=== PATIENT | male | born 1945 | race Caucasian/White ===

== ENCOUNTER 2018-08-15 12:33 | Emergency (ER) | payer OTHER, BC ==
--- OUTSIDE RECORDS SUMMARY | 2018-08-15 12:35 | XMS REPORT | Clinical Summary ---
:1945 Author Organization [facility] Address [address] [place] [address] Care Team Providers Name Role Phone Rk Evans DO Primary Care Provider Unavailable Allergies Active Allergy Reactions Severity Noted Date Comments Morphine 01/18/2016 Medications Medication Sig Dispensed Refills Start End Status Date Date ipratropium-albuterol USE 1 AMPULE IN 810 mL 1 05/04/20 Active (DUO-NEB) 0.5-2.5 NEBULIZER EVERY 8 18 mg/mL HOURS NEEDED nebulizerIndications: Chronic obstructive pulmonary disease, unspecified COPD type (HCC) testosterone cypionate INJECT 1 ML 10 mL 0 12/07/19 Discontinued (DEPOTESTOTERONE INSTRAMUSCULAR 16 018 CYPIONATE) 200 mg/mL EVERY 2 WEEKS injection ipratropium-albuterol USE 1 AMPULE IN 270 mL 1 09/25/19 Discontinued (DUO-NEB) 0.5-2.5 NEBULIZER EVERY 8 17 018 mg/mL HOURS NEEDED nebulizerIndications: Chronic obstructive pulmonary disease, unspecified COPD type (HCC) TIOTROPIUM BROMIDE Inhale. 0 Discontinued (SPIRIVA RESPIMAT 018 INHL) methylPREDNISolone follow package 21 tablet 0 08/08/19 (MEDROL, KLAUS,) 4 mg directions 18 018 tablet PROAIR HFA 90 USE 2 PUFFS BY 18 g 3 08/08/19 Discontinued mcg/actuation MOUTH EVERY 6 18 018 inhalerIndications: HOURS NEEDED Acute bronchitis, unspecified organism albuterol (VENTOLIN Inhale 2 puffs 18 g 2 08/11/19 HFA) 90 mcg/actuation every 6 (six) 18 018 inhaler hours as needed for wheezing for up to 30 days. albuterol (PROAIR HFA) Inhale 1 puff 54 g 3 09/22/ Discontinued 90 mcg/actuation every 6 (six) 18 018 inhalerIndications: hours as needed Acute bronchitis, for wheezing for unspecified organism up to 90 days. fluticasone-vilanterol Inhale 1 puff. 0 06/16/20 Discontinued (BREO ELLIPTA) 200-25 17 018 mcg/dose blister with device powder for inhalation traMADol (ULTRAM) 50 Take 1 tablet (50 60 tablet 0 12/16/19 mg tablet mg total) by 18 018 mouth every 8 (eight) hours as needed for moderate pain for up to 30 days. tiotropium bromide Inhale 2 Act 4 g 2 12/16/19 Discontinued (SPIRIVA RESPIMAT) 2.5 daily for 90 18 018 mcg/actuation mist days. albuterol (PROAIR HFA) Inhale 1 puff 54 g 3 12/16/19 90 mcg/actuation every 6 (six) 18 018 inhaler hours as needed for wheezing or shortness of breath for up to 90 days. ipratropium-albuterol USE 1 AMPULE IN 270 mL 1 12/16/19 Discontinued (DUO-NEB) 0.5-2.5 NEBULIZER EVERY 8 18 018 mg/mL HOURS NEEDED nebulizerIndications: Chronic obstructive pulmonary disease, unspecified COPD type (HCC) fluticasone-vilanterol Inhale 1 90 each 2 12/16/19 (BREO ELLIPTA) 200-25 inhalations once 18 018 mcg/dose blister with daily for 90 device powder for days. inhalation umeclidinium (INCRUSE Inhale 62.5 mcg 1 each 1 12/16/19 ELLIPTA) 62.5 daily for 30 18 018 mcg/actuation blister days. with device ipratropium-albuterol USE 1 AMPULE IN 810 mL 1 01/24/20 Discontinued (DUO-NEB) 0.5-2.5 NEBULIZER EVERY 8 18 018 mg/mL HOURS NEEDED nebulizerIndications: Chronic obstructive pulmonary disease, unspecified COPD type (HCC) Active Problems Problem Noted Date COPD with exacerbation 08/08/2017 Chronic obstructive pulmonary disease 05/27/2016 Secondary hypertension 05/27/2016 COPD (chronic obstructive pulmonary disease) Asthma Encounters Date Type Specialty Care Team Description 05/04/2018 Refill Pulmonology January Adair MA Chronic obstructive pulmonary disease, unspecified COPD type (HCC) 01/23/2018 Orders Only Pulmonology Charity Lam MA Chronic obstructive pulmonary disease, unspecified COPD type 01/05/2018 Hospital Encounter Radiology Rk Evans, Primary 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 of knees, bilateral 01/05/2018 Hospital Encounter Radiology Rk Evans, Primary 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 of knees, bilateral 01/05/2018 Transcribe Orders Access Rk Evans, Primary 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 of knees, bilateral (Primary Dx) 12/15/2017 Office Visit Pulmonology Kris Brown, Chronic obstructive pulmonary disease, unspecified COPD type (Primary Dx); Osteoarthritis of left knee, unspecified osteoarthritis type 12/15/2017 Orders Only Pulmonology Dina Lam MA 09/22/2017 Orders Only Pulmonology Stefani Weber MA Acute bronchitis, unspecified organism 09/08/2017 Clinical Support Pulmonology Abhijit Meeks Chronic obstructive pulmonary disease, unspecified COPD type after 08/14/2017 Immunizations Name Dates Previously Given Next Due FLUZONE HIGH-DOSE PF 05/27/2016 Influenza Trivalent 05/01/2015 Pneumococcal Conjugate 13-Valent 05/01/2015 Pneumococcal Polysaccharide 08/15/2014 Family History Medical History Relation Name Comments Cancer Father Hypertension Mother Relation Name Status Comments Father Mother Social History Tobacco Use Types Packs/Day Years Used Date Former Smoker Cigarettes Quit: 05/27/1996 Smokeless Tobacco: Former User Alcohol Use Drinks/Week oz/Week Comments Yes Sex Assigned at Date Recorded Not on file Job Start Date Occupation Industry Not on file Not on file Not on file Travel History Travel Start Travel End No recent travel history available. Last Filed Vital Signs Vital Sign Reading Time Taken Blood Pressure 113/60 12/15/2017 12:29 PM CDT Pulse 73 12/15/2017 12:29 PM CDT Temperature 37.1 C (98.7 F) 12/15/2017 12:29 PM CDT Respiratory Rate 14 12/15/2017 12:29 PM CDT Oxygen Saturation 97% 12/15/2017 12:29 PM CDT Inhaled Oxygen Concentration - - Weight 86.9 kg (191 lb 9.6 oz) 12/15/2017 12:29 PM CDT Height 177.8 cm (5' 10") 12/15/2017 12:29 PM CDT Body Mass Index 27.49 12/15/2017 12:29 PM CDT Plan of Treatment Health Maintenance Due Date Last Done Comments COLON CANCER SCREENING 1994 SHINGLES VACCINES (1 of 2) 1994 INFLUENZA VACCINE 02/11/2018 06/16/2017, 05/27/2016, 05/01/2015 PNEUMOCOCCAL POLYSACCHARIDE VACCINE Completed 08/15/2014, 07/14/2014 AGE 65 AND OVER PNEUMOCOCCAL-13 Completed 06/16/2017, 05/01/2015 Procedures Procedure Name Priority Date/Time Associated Diagnosis Comments XR KNEE AP Routine 01/05/2018 10:35 Primary osteoarthritis Results for this STANDING BILATERAL AM CDT of knees, bilateral procedure are in the results section. XR KNEE 3 VW Routine 01/05/2018 10:35 Primary osteoarthritis Results for this BILATERAL AM CDT of knees, bilateral procedure are in the results section. after 08/14/2017 Results XR Knee Ap Standing Bilateral (01/05/2018 10:35 AM CDT) Narrative Performed At EXAMINATION:XR KNEE AP STANDING BILATERAL [facility] CLINICAL HISTORY:M17.0 Bilateral primary osteoarthritis of knee, M17.0 COMPARISON:None. TECHNIQUE: Standing AP radiographs of both knees are obtained. IMPRESSION: There is advanced arthritis in the right knee, an early medial compartment osteoarthritis in the left knee. Patient is status post right knee ACL repair. [facility]-[id number] Procedure Note Hm Interface, Radiology Results Incoming - 01/05/2018 10:47 AM CDT EXAMINATION: XR KNEE AP STANDING BILATERAL CLINICAL HISTORY: M17.0 Bilateral primary osteoarthritis of knee, M17.0 COMPARISON: None. TECHNIQUE: Standing AP radiographs of both knees are obtained. IMPRESSION: There is advanced arthritis in the right knee, an early medial compartment osteoarthritis in the left knee. Patient is status post right knee ACL repair. [facility]-[id number] Performing Organization Address City/State/Zipcode Phone Number [facility] [address] [place] [address] XR Knee 3 Vw Bilateral (01/05/2018 10:35 AM CDT) Narrative Performed At EXAMINATION:XR KNEE 3 VW BILATERAL [facility] CLINICAL HISTORY:M17.0 Bilateral primary osteoarthritis of knee, M17.5 COMPARISON:None. TECHNIQUE: AP, lateral, and oblique radiographs of both knees are obtained. IMPRESSION: 1.There is advanced osteoarthritis in the right knee. There are surgical changes of ACL repair. 2.There is early osteoarthritis in the left medial tibial femoral compartment. 3.There is no fracture, subluxation, joint effusion, or aggressive bone lesion. [id number] Procedure Note Hm Interface, Radiology Results Incoming - 01/05/2018 10:47 AM CDT EXAMINATION: XR KNEE 3 VW BILATERAL CLINICAL HISTORY: M17.0 Bilateral primary osteoarthritis of knee, M17.5 COMPARISON: None. TECHNIQUE: AP, lateral, and oblique radiographs of both knees are obtained. IMPRESSION: 1. There is advanced osteoarthritis in the right knee. There are surgical changes of ACL repair. 2. There is early osteoarthritis in the left medial tibial femoral compartment. 3. There is no fracture, subluxation, joint effusion, or aggressive bone lesion. [id number] Performing Organization Address City/State/Zipcode Phone Number [facility] [address] [place] [address] after 08/14/2017 Insurance Payer Benefit Plan / Group Subscriber ID Type Phone Address [employer]/HMO BLUE ESSENTIALS xxxxxxxxxxxx HMO AETNA AETNA HMO,POS,EPO, MC/EC xxxxxxxx HMO [facility] COUNTS INCLUDE [address] BEDS AT THE [facility] (Home) [address], [place] (Work) [phone] Advance Directives Patient has advance care planning documents on file. For more information, please contact:Carlos Quintero[address] [place] [phone]
[2018-08-15] MEDS ORDERED: LIDOCAINE VISCOUS 2% SOLN 15 ML UDC ONE (13:48)
[2018-08-15] MEDS ORDERED: MAGNE/ALUM HYDROXD 30 ML UCUP ONE (13:48)
--- NOTE | 2018-08-15 14:11 | ER ---
Nurse's Notes [facility] Name: Kwadwo Bird Age: 72 yrs Sex: Male : 1945 Arrival Date: 08/15/2018 Time: 12:39 Bed 23 Private MD: Diagnosis: Pain in throat Presentation: 08/15 12:48 Presenting complaint: Patient states: Sore throat for one night, denies cough, fever. la1 States it reminds him of when he used to get strep when he was young. Transition of care: patient was not received from another setting of care. Onset of symptoms was August 15, 2018. Risk Assessment: Do you want to hurt yourself or someone else? Patient reports no desire to harm self or others. Initial Sepsis Screen: Does the patient meet any 2 criteria? No. Patient's initial sepsis screen is negative. Does the patient have a suspected source of infection? No. Patient's initial sepsis screen is negative. Care prior to arrival: None. 12:48 Method Of Arrival: Ambulatory la1 12:48 Acuity: DEQUAN 3 la1 Historical: - Allergies: 12:49 No Known Allergies; la1 - PMHx: 12:49 Asthma; la1 - PSHx: 12:49 Tonsillectomy; Knee surgery; la1 - Immunization history:: Adult Immunizations up to date. - Social history:: Smoking status: Patient/guardian denies using tobacco, the patient reports quitting approximately 10 years ago. - Ebola Screening: : No symptoms or risks identified at this time. Screenin:30 Abuse screen: Denies threats or abuse. Nutritional screening: No deficits noted. tl3 Tuberculosis screening: No symptoms or risk factors identified. Fall Risk None identified. Assessment: 13:30 Reassessment: throat started hurting last night, no fever. General: Appears in no tl3 apparent distress. comfortable, slender, well groomed, well developed, well nourished, Behavior is calm, cooperative, appropriate for age. Pain: Complains of pain in sore throat. Neuro: Level of Consciousness is awake, alert, obeys commands, Oriented to person, place, time, situation, Appropriate for age. Cardiovascular: Patient's skin is warm and dry. Respiratory: Airway is patent Respiratory effort is even, unlabored, Respiratory pattern is regular, symmetrical, Breath sounds are clear bilaterally. GI: No signs and/or symptoms were reported involving the gastrointestinal system. : No signs and/or symptoms were reported regarding the genitourinary system. EENT: Reports pain when swallowing. Derm: No signs and/or symptoms reported regarding the dermatologic system. Musculoskeletal: No signs and/or symptoms reported regarding the musculoskeletal system. 14:42 Reassessment: pt left before signing discharge papers. tl3 Vital Signs: 12:49 BP 125 / 72; Pulse 91; Resp 18; Temp 97.6; Pulse Ox 98% on R/A; Weight 88.45 kg; Height la1 5 ft. 1 in. (154.94 cm); 13:30 BP 151 / 87; Pulse 67; Resp 18; Pulse Ox 100% on R/A; tl3 14:00 BP 142 / 87; Pulse 66; Resp 18; Pulse Ox 95% on R/A; tl3 12:49 Body Mass Index 36.84 (88.45 kg, 154.94 cm) la1 ED Course: 12:39 Patient arrived in ED. mr 12:49 Triage completed. la1 12:50 Arm band placed on left wrist. la1 12:51 [facility] Velasquez [facility]-C [facility]. kb 12:51 Edson Rinaldi MD is Attending Physician. kb 13:30 Patient has correct armband on for positive identification. Bed in low position. tl3 13:30 No provider procedures requiring assistance completed. Patient did not have IV access tl3 during this emergency room visit. 13:36 Kay England, RN is Primary Nurse. tl3 Administered Medications: 13:41 Drug: GI Cocktail without - (Maalox Suspension 30 ml, Lidocaine Liquid 2 % 15 tl3 ml) Route: PO; 14:41 Follow up: Response: No adverse reaction tl3 Outcome: 14:10 Discharge ordered by . kb 14:42 Eloped from patient exam room, left before signing discharge paperwork tl3 14:44 Patient left the ED. tl3 Signatures: Radha Velasquez FNP-C FNP-Meghna Latasha ParekhStan, RN RN la1 Kay England, JOHN RN tl3
--- NOTE | 2018-08-15 14:11 | EDPHYS ---
Physician Documentation [facility] Name: Kwadwo Bird Age: 72 yrs Sex: Male : 1945 Arrival Date: 08/15/2018 Time: 12:39 Bed 23 Private MD: ED Physician Edson Rinaldi HPI: 08/15 14:33 This 72 yrs old Male presents to ER via Ambulatory with complaints of Sore kb Throat. 14:33 The patient presents with sore throat. The patient describes throat pain as constant. kb Onset: The symptoms/episode began/occurred yesterday. Severity of symptoms: At their worst the symptoms were moderate, in the emergency department the symptoms are unchanged. Modifying factors: The symptoms are alleviated by nothing, the symptoms are aggravated by swallowing, Patient's oral intake status: good Denies contact with similarly ill indivduals. Associated signs and symptoms: Pertinent positives: Sore throat Pertinent negatives chest pain, chills, cough, diarrhea, dysphagia, earache, fever, flu-like symptoms, headache, nausea, rhinorrhea, shortness of breath, vomiting. The patient has not experienced similar symptoms in the past. The patient has not recently seen a physician. Historical: - Allergies: 12:49 No Known Allergies; la1 - PMHx: 12:49 Asthma; la1 - PSHx: 12:49 Tonsillectomy; Knee surgery; la1 - Immunization history:: Adult Immunizations up to date. - Social history:: Smoking status: Patient/guardian denies using tobacco, the patient reports quitting approximately 10 years ago. - Ebola Screening: : No symptoms or risks identified at this time. ROS: 14:32 Constitutional: Negative for fever, chills, and weight loss, Neck: Negative for injury, kb pain, and swelling, Cardiovascular: Negative for chest pain, palpitations, and edema, Respiratory: Negative for shortness of breath, cough, wheezing, and pleuritic chest pain, Abdomen/GI: Negative for abdominal pain, nausea, vomiting, diarrhea, and constipation, Back: Negative for injury and pain, MS/Extremity: Negative for injury and deformity, Skin: Negative for injury, rash, and discoloration, Neuro: Negative for headache, weakness, numbness, tingling, and seizure. 14:32 ENT: Positive for sore throat. Exam: 14:32 Constitutional: This is a well developed, well nourished patient who is awake, alert, kb and in no acute distress. Head/Face: Normocephalic, atraumatic. ENT: Nares patent. No nasal discharge, no septal abnormalities noted. Tympanic membranes are normal and external auditory canals are clear. Oropharynx with no redness, swelling, or masses, exudates, or evidence of obstruction, uvula midline. Mucous membranes moist. Neck: Trachea midline, no thyromegaly or masses palpated, and no cervical lymphadenopathy. Supple, full range of motion without nuchal rigidity, or vertebral point tenderness. No Meningismus. Chest/axilla: Normal chest wall appearance and motion. Nontender with no deformity. No lesions are appreciated. Cardiovascular: Regular rate and rhythm with a normal S1 and S2. No gallops, murmurs, or rubs. Normal PMI, no JVD. No pulse deficits. Respiratory: Lungs have equal breath sounds bilaterally, clear to auscultation and percussion. No rales, rhonchi or wheezes noted. No increased work of breathing, no retractions or nasal flaring. Abdomen/GI: Soft, non-tender, with normal bowel sounds. No distension or tympany. No guarding or rebound. No evidence of tenderness throughout. Skin: Warm, dry with normal turgor. Normal color with no rashes, no lesions, and no evidence of cellulitis. MS/ Extremity: Pulses equal, no cyanosis. Neurovascular intact. Full, normal range of motion. Neuro: Awake and alert, GCS 15, oriented to person, place, time, and situation. Cranial nerves II-XII grossly intact. Motor strength 5/5 in all extremities. Sensory grossly intact. Cerebellar exam normal. Normal gait. Vital Signs: 12:49 BP 125 / 72; Pulse 91; Resp 18; Temp 97.6; Pulse Ox 98% on R/A; Weight 88.45 kg; Height la1 5 ft. 1 in. (154.94 cm); 13:30 BP 151 / 87; Pulse 67; Resp 18; Pulse Ox 100% on R/A; tl3 14:00 BP 142 / 87; Pulse 66; Resp 18; Pulse Ox 95% on R/A; tl3 12:49 Body Mass Index 36.84 (88.45 kg, 154.94 cm) la1 MDM: 12:51 Patient medically screened. kb 14:07 Data reviewed: vital signs, nurses notes. Data interpreted: Pulse oximetry: on room air kb is 98 %. Interpretation: normal. Counseling: I had a detailed discussion with the patient and/or guardian regarding: the historical points, exam findings, and any diagnostic results supporting the discharge/admit diagnosis, lab results, the need for outpatient follow up, a family practitioner, to return to the emergency department if symptoms worsen or persist or if there are any questions or concerns that arise at home. 08/15 12:56 Order name: Strep; Complete Time: 14:01 kb 08/15 12:56 Order name: Flu; Complete Time: 14:04 kb 08/15 13:56 Order name: Throat Culture EDMS Administered Medications: 13:41 Drug: GI Cocktail without - (Maalox Suspension 30 ml, Lidocaine Liquid 2 % 15 tl3 ml) Route: PO; 14:41 Follow up: Response: No adverse reaction tl3 Disposition: 18:51 Co-signature as Attending Physician, Edson Rinaldi MD Available for consultation at ps1 all times . Disposition: 08/15/18 14:10 Discharged to Home. Impression: Pain in throat. - Condition is Stable. - Discharge Instructions: Sore Throat, Inrh-nr-Leef. - Medication Reconciliation Form, Thank You Letter, Antibiotic Education, Prescription Opioid Use form. - Follow up: Emergency Department; When: As needed; Reason: Worsening of condition. Follow up: Private Physician; When: 2 - 3 days; Reason: Recheck today's complaints, Continuance of care, Re-evaluation by your physician. Signatures: Dispatcher [employer] EDWV Radha Velasquez, DORI-C ANIMAL COP-Stan Chang RN RN la1 Edson Rinaldi MD MD ps1 Kay England RN RN tl3 Corrections: (The following items were deleted from the chart) 14:44 14:10 08/15/2018 14:10 Discharged to Home. Impression: Pain in throat. Condition is tl3 Stable. Forms are Medication Reconciliation Form, Thank You Letter, Antibiotic Education, Prescription Opioid Use. Follow up: Emergency Department; When: As needed; Reason: Worsening of condition. Follow up: Private Physician; When: 2 - 3 days; Reason: Recheck today's complaints, Continuance of care, Re-evaluation by your physician. kb
[2018-08-15 14:59] VITALS: TEMP 97.6
[2018-08-15 15:01] VITALS: BP 142/87; O2SAT 95
== END 2018-08-15 14:44 | disposition home or self-care (01) ==
LOC: ER 12:33
DX: J02.9 Acute pharyngitis, unspecified (principal)
CPT/HCPCS: 87070; 87081; 87804; 99283

== ENCOUNTER 2024-01-03 13:21 | Emergency (ER) | payer OTHER, BC ==
[2024-01-03] MEDS ORDERED: METOPROLOL TARTRATE 5 MG/5 ML INJ IV ONE (13:37)
[2024-01-03 13:52] LABS: Absolute Eosinophils 0.2 K/uL (0-0.5); Absolute Lymphocytes (CBC) 1.2 K/uL (0.7-4.9); Absolute Monocytes 0.9 K/uL (0.1-1.3); Basophils % 0.5 % (0-1.3); Eosinophils % 3.4 % (0-4.4); Hematocrit 31.6 % (39.6-49.0); Hemoglobin 10.2 g/dL (13.6-17.9); Lymphocytes % 16.5 % (15.3-44.8); MCH 28.2 pg (27.0-35.0); MCHC 32.1 g/dL (32.0-36.0); MCV 87.7 fL (80-100); MPV 7.8 fL (7.6-11.3); Monocytes % 12.4 % (3.3-12.3); Neutrophils % 67.2 % (41.7-73.7); Platelets 345 thou/uL (152-406); RBC Red Blood Cell Count 3.61 M/uL (4.33-5.43); Red Cell Distribution Width 14.6 % (12.1-15.2)
[2024-01-03] MEDS ORDERED: dilTIAZem HCL 25 MG/5 ML VIAL IV ONE (13:59)
[2024-01-03 14:11] LABS: Anion Gap 9.2 mEq/L (5.0-15.0); Potassium 4.2 mEq/L (3.5-5.1); Troponin High Sensitivity 16.5 pg/mL (<58.9)
[2024-01-03 14:16] LABS: ALT/SGPT 19 U/L (16-61); AST/SGOT 13 U/L (15-37); Albumin 3.9 g/dL (3.4-5.0); Albumin/Globulin Ratio 1.4 (1.1-1.8); Alkaline Phosphatase 64 U/L (45-117); Bilirubin Total 0.4 mg/dL (0.2-1.0); Globulin 2.8 g/dL (2.3-3.5); Protein, Total 6.7 g/dL (6.4-8.2); Thyroid Stimulating Hormone 0.962 uIU/mL (0.358-3.740)
[2024-01-03 15:31] LABS: Bilirubin Direct < 0.2 mg/dL (0-0.2); Bilirubin Indirect, Calculated 0.2 mg/dL (0.2-0.8)
--- NOTE | 2024-01-03 15:35 | RAD REPORT ---
[facility] CLINICAL HISTORY: CHEST PAIN COMPARISON: Chest Single View dated 06/28/2023; Chest Pa And Lat (2 Views) dated 06/11/2023 TECHNIQUE: Portable AP view of the chest. FINDINGS: The lungs are clear. No pneumothorax or effusion. The cardiomediastinal contours are unre markable. IMPRESSION: No acute cardiopulmonary process.
--- NOTE | 2024-01-03 17:00 | RAD REPORT ---
EXAM DESCRIPTION: CT - Chest For Pe Angio - 01/03/2024 4:14 pm CLINICAL HISTORY: CHEST PAIN COMPARISON: No comparisons TECHNIQUE: Thin axial CT images of the chest were obtained following intravenous administration of i odinated contrast. Multiplanar reconstructions, and maximum intensity projection reconstructions were generated and reviewed. Exam utilizes a protocol for optimal evaluation of pulmonary arterial tree. All CT scans are performed using dose optimization technique as appropriate and may include automated exposure control or mA/KV adjustment according to patient size. FINDINGS: Pulmonary arteries are normal. No emboli or other suspicious finding. Mild aneurysmal dila tion of the ascending thoracic aorta measuring 4.3 cm in caliber. No other acute or significant aorta findings. No mass or infiltrate in the lung parenchyma. Basal predominant centrilobular emphysematous changes a nd hyperlucency. 4 mm peripheral right lower lobe nodule, axial image 38, nonspecific but likely robinson gn. No pleural thickening or pleural effusion. No pneumothorax. No abnormal mediastinal or hilar masses or lymphadenopathy seen. No chest wall mass or abnormal axill iary lymphadenopathy. IMPRESSION: No evidence of acute central pulmonary emboli. Mild aneurysmal dilation of the ascending thoracic aorta, measuring 4.3 cm in caliber. Other incidental findings as above.
--- NOTE | 2024-01-03 17:21 | EDPHYS ---
Physician Documentation [facility] Name: Kwadwo Bird Age: 78 yrs Sex: Male : 1945 Arrival Date: 01/03/2024 Time: 13:21 Bed 14 Private MD: ED Physician Itz Stokes HPI: 01/02 14:57 This 78 yrs old Male presents to ER via Ambulatory with complaints of Chest Pain, A-fib.rt 14:57 Patient with history of atrial fibrillation presents to the ED with chest pain, rt shortness of breath. Patient noted that his heart rate was elevated, patient did took 200 mg of amiodarone which initially improved his heart rate from 160s to 80s, however, his heart rate did increase following that. Patient denies other acute complaints at this time, symptoms are moderate in severity, no other aggravating or alleviating factors.. Historical: - Allergies: 13:32 Morphine; hb - PMHx: 13:32 Asthma; Chronic obstructive lung disease; hb - PSHx: 13:32 hernia repair; watchman procedure; hb - Immunization history:: Adult Immunizations up to date. - Infectious Disease History:: Denies. - Social history:: Smoking status: Patient denies any tobacco usage or history of. - Family history:: not pertinent. ROS: 14:57 Constitutional: Negative for fever, chills, and weight loss, Abdomen/GI: Negative for rt abdominal pain, nausea, vomiting, diarrhea, and constipation, MS/Extremity: Negative for injury and deformity, Skin: Negative for injury, rash, and discoloration, Neuro: Negative for headache, weakness, numbness, tingling, and seizure, 14:57 Cardiovascular: Positive for chest pain, palpitations, 14:57 Respiratory: Positive for shortness of breath, Negative for cough, Exam: 14:57 Constitutional: This is a well developed, well nourished patient who is awake, alert, rt and in no acute distress. Head/Face: Normocephalic, atraumatic. Chest/axilla: Normal chest wall appearance and motion. Nontender with no deformity. No lesions are appreciated. Cardiovascular: Regular rate and rhythm with a normal S1 and S2. No gallops, murmurs, or rubs. Normal PMI, no JVD. No pulse deficits. Respiratory: Lungs have equal breath sounds bilaterally, clear to auscultation and percussion. No rales, rhonchi or wheezes noted. No increased work of breathing, no retractions or nasal flaring. Abdomen/GI: Soft, non-tender, with normal bowel sounds. No distension or tympany. No guarding or rebound. No evidence of tenderness throughout. Skin: Warm, dry with normal turgor. Normal color with no rashes, no lesions, and no evidence of cellulitis. MS/ Extremity: Pulses equal, no cyanosis. Neurovascular intact. Full, normal range of motion. Neuro: Awake and alert, GCS 15, oriented to person, place, time, and situation. Cranial nerves II-XII grossly intact. Motor strength 5/5 in all extremities. Sensory grossly intact. Cerebellar exam normal. Normal gait. 14:57 ECG was reviewed by the Attending Physician. Vital Signs: 13:25 BP 135 / 106; Pulse 99; Resp 24; Temp 97.8(TE); Pulse Ox 99% on R/A; Pain 7/10; hb 13:39 BP 121 / 74; Pulse 164; kc6 13:46 BP 118 / 78; Pulse 132; kc6 13:50 BP 92 / 57; Pulse 104; kc6 13:56 BP 115 / 78; Pulse 62; Resp 20 S; Pulse Ox 97% on R/A; kc6 14:00 BP 103 / 68; Pulse 97; Resp 19 S; Pulse Ox 96% on R/A; kc6 14:10 BP 115 / 68; Pulse 70; Resp 20 S; Pulse Ox 97% on R/A; Weight 83.91 kg (R); Height 5 kc6 ft. 9 in. (R); 14:53 BP 110 / 72; Pulse 122; Resp 18 S; Pulse Ox 100% on R/A; kc6 15:34 BP 104 / 72; Pulse 65; Resp 15 S; Pulse Ox 97% on R/A; kc6 16:38 Pulse 62; Resp 18 S; Pulse Ox 100% on R/A; kc6 17:30 BP 119 / 60; Pulse 68; Resp 18; Pulse Ox 98% ; nj1 14:10 Body Mass Index 27.32 (83.91 kg, 175.26 cm) kc6 13:25 Pain Scale: Adult hb MDM: 13:36 Patient medically screened. rt 17:21 Differential diagnosis: A-fib, dysrhythmia, pulmonary embolism. Data reviewed: vital rt signs, nurses notes, lab test result(s), EKG, radiologic studies. Consideration of Admission/Observation Escalation of care including admission/observation considered. Offered patient admission to the hospital, states that he feels significantly better, back to normal, wishes to go home. I did inform patient of findings of pulmonary nodule as well as mild thoracic aneurysm, instructed to follow-up as an outpatient. Strict return precautions were discussed. Patient verbalized understanding is comfortable with this plan.. I considered the following discharge prescriptions or medication management in the emergency department Medications were administered in the Emergency Department. See MAR. Independent interpretation of the following test(s) in the Emergency Department X-Ray: My interpretation is No pneumonia seen on interpretation of x-ray images. Care significantly affected by the following chronic conditions: CKD, A-fib. Counseling: I had a detailed discussion with the patient and/or guardian regarding the historical points, exam findings, and any diagnostic results supporting the discharge/admit diagnosis, lab results, radiology results, the need for outpatient follow up. Response to treatment: the patient's symptoms have resolved after treatment. 01/02 13:35 Order name: Basic Metabolic Panel; Complete Time: 14:58 [facility] 01/02 13:35 Order name: CBC with Diff; Complete Time: 14:58 6 01/02 13:35 Order name: Troponin HS; Complete Time: 14:58 [facility] 01/02 13:36 Order name: D-Dimer; Complete Time: 14:58 rt 01/02 13:36 Order name: LFT's; Complete Time: 15:32 rt 01/02 13:36 Order name: TSH; Complete Time: 15:32 rt 01/02 13:35 Order name: XRAY Chest (1 view); Complete Time: 15:41 6 01/02 15:49 Order name: CT Chest For PE Angio; Complete Time: 17:09 rt 01/02 13:35 Order name: EKG; Complete Time: 13:36 [facility] 01/02 13:35 Order name: Cardiac monitoring; Complete Time: 13:35 [facility] 01/02 13:35 Order name: EKG - Nurse/Tech; Complete Time: 13:35 [facility] 01/02 13:35 Order name: IV Saline Lock; Complete Time: 13:35 kc6 01/02 13:35 Order name: Labs collected and sent; Complete Time: 13:35 [facility] 01/02 13:35 Order name: O2 Per Protocol; Complete Time: 13:35 [facility] 01/02 13:35 Order name: O2 Sat Monitoring; Complete Time: 13:35 [facility] EC:57 Rate is 153 beats/min. Rhythm is irregularly irregular, A fib with No ectopy, Left rt bundle branch block. QRS interval is normal. No Q waves. Administered Medications: 13:39 Drug: Metoprolol IVP 5 mg IVP every 5 minutes; Hold for SBP < 100 or HR < 60. x3 Route: kc6 IVP; Site: right forearm; 13:46 Drug: Metoprolol IVP 5 mg IVP every 5 minutes; Hold for SBP < 100 or HR < 60. x3 Route: kc6 IVP; Site: right forearm; 13:51 Drug: Metoprolol IVP 5 mg IVP every 5 minutes; Hold for SBP < 100 or HR < 60. x3 Route: kc6 IVP; Site: right forearm; 14:21 Follow up: Response: No adverse reaction; Cardiac rhythm is unchanged 6 14:21 Follow up: Response: No adverse reaction; Cardiac rhythm is unchanged 6 14:21 Follow up: Response: No adverse reaction; Cardiac rhythm is unchanged [facility] 14:10 Drug: Diltiazem IVP 10 mg IVP once; Over 2 minutes Route: IVP; Site: right forearm; 6 14:21 Follow up: Response: No adverse reaction; Cardiac rhythm changed [facility] Disposition: 17:21 Critical Care:. rt Disposition Summary: 01/03/24 17:20 Discharge Ordered Notes: Location: Home rt Problem: new rt Symptoms: are resolved rt Condition: Stable rt Diagnosis - Atrial fibrillation with rapid ventricular rate rt Followup: rt - With: Private Physician - When: 2 - 3 days - Reason: Discharge Instructions: - Discharge Summary Sheet rt - Atrial Fibrillation rt Forms: - Medication Reconciliation Form rt - Antibiotic Education rt - Prescription Opioid Use rt - Patient Portal Instructions rt - Leadership Thank You Letter rt Critical care time excluding procedures: 17:21 Critical care time: Bedside Care: 35 minutes. Total time: 35 minutes rt Signatures: Dispatcher [employer] Kimberly Doss RN RN hb Campbell, Kaitlyn, RN RN kc6 Itz Stokes, MD rt
--- NOTE | 2024-01-03 17:21 | ER ---
Nurse's Notes [facility] Name: Kwadwo Bird Age: 78 yrs Sex: Male : 1945 Arrival Date: 01/03/2024 Time: 13:21 Bed 14 Private MD: Diagnosis: Atrial fibrillation with rapid ventricular rate Presentation: 01/02 13:25 Chief complaint: Chest pain and palpitations since this morning. Coronavirus screen: At this time, the client does not indicate any symptoms associated with coronavirus-19. Ebola Screen: No symptoms or risks identified at this time. Initial Sepsis Screen: Does the patient meet any 2 criteria? No. Patient's initial sepsis screen is negative. Does the patient have a suspected source of infection? No. Patient's initial sepsis screen is negative. Risk Assessment: Do you want to hurt yourself or someone else? Patient reports no desire to harm self or others. Onset of symptoms was January 03, 2024. 13:25 Method Of Arrival: Ambulatory 13:25 Acuity: DEQUAN 2 hb Historical: - Allergies: 13:32 Morphine; hb - PMHx: 13:32 Asthma; Chronic obstructive lung disease; hb - PSHx: 13:32 hernia repair; watchman procedure; hb - Immunization history:: Adult Immunizations up to date. - Infectious Disease History:: Denies. - Social history:: Smoking status: Patient denies any tobacco usage or history of. - Family history:: not pertinent. Screenin:33 [facility] ED Fall Risk Assessment (Adult) History of falling in the last 3 months, kc6 including since admission No falls in past 3 months (0 pts) Confusion or Disorientation No (0 pts) Intoxicated or Sedated No (0 pts) Impaired Gait No (0 pts) Mobility Assist Device Used No (0 pt) Altered Elimination No (0 pt) Score/Fall Risk Level 0 - 2 = Low Risk. Abuse screen: Denies threats or abuse. Denies injuries from another. Nutritional screening: No deficits noted. Tuberculosis screening: No symptoms or risk factors identified. Assessment: 13:25 General: Appears in no apparent distress. uncomfortable, well groomed, well developed, kc6 Behavior is calm, cooperative, appropriate for age. Pain: Complains of pain in mid-sternal area Pain does not radiate. Pain currently is 7 out of 10 on a pain scale. at worst was 10 out of 10 on a pain scale. Pain began 4 hours ago. Neuro: Level of Consciousness is awake, alert, obeys commands, Oriented to person, place, time, situation, Appropriate for age. Cardiovascular: Reports chest pain, Heart tones S1 S2 present Capillary refill < 3 seconds Rhythm is atrial fibrillation with rapid ventricular response. Respiratory: Airway is patent Trachea midline Respiratory effort is even, unlabored, Respiratory pattern is regular, symmetrical. GI: No signs and/or symptoms were reported involving the gastrointestinal system. : No signs and/or symptoms were reported regarding the genitourinary system. EENT: No signs and/or symptoms were reported regarding the EENT system. Derm: No signs and/or symptoms reported regarding the dermatologic system. Skin is intact, is healthy with good turgor, Skin is pink, warm \T\ dry. Wound noted right knee Wound is from a right knee arthroplasty 4 weeks ago. wound is clean, dry, and scabbed over. without redness, swelling or, drainage. Musculoskeletal: No signs and/or symptoms reported regarding the musculoskeletal system. Circulation, motion, and sensation intact. Capillary refill < 3 seconds, Range of motion: intact in all extremities. 14:25 Reassessment: Patient appears in no apparent distress at this time. No changes from kc6 previously documented assessment. Patient and/or family updated on plan of care and expected duration. Pain level reassessed. Patient is alert, oriented x 3, equal unlabored respirations, skin warm/dry/pink. Patient states feeling better. Patient states symptoms have improved. 15:25 Reassessment: Patient appears in no apparent distress at this time. No changes from kc6 previously documented assessment. Patient and/or family updated on plan of care and expected duration. Pain level reassessed. Patient is alert, oriented x 3, equal unlabored respirations, skin warm/dry/pink. 16:25 Reassessment: Patient appears in no apparent distress at this time. No changes from kc6 previously documented assessment. Patient and/or family updated on plan of care and expected duration. Pain level reassessed. Patient is alert, oriented x 3, equal unlabored respirations, skin warm/dry/pink. 17:30 Reassessment: Patient appears in no apparent distress at this time. Patient is alert, nj1 oriented x 3, equal unlabored respirations, skin warm/dry/pink. Patient states feeling better. Patient states symptoms have improved. Vital Signs: 13:25 BP 135 / 106; Pulse 99; Resp 24; Temp 97.8(TE); Pulse Ox 99% on R/A; Pain 7/10; hb 13:39 BP 121 / 74; Pulse 164; kc6 13:46 BP 118 / 78; Pulse 132; kc6 13:50 BP 92 / 57; Pulse 104; kc6 13:56 BP 115 / 78; Pulse 62; Resp 20 S; Pulse Ox 97% on R/A; kc6 14:00 BP 103 / 68; Pulse 97; Resp 19 S; Pulse Ox 96% on R/A; kc6 14:10 BP 115 / 68; Pulse 70; Resp 20 S; Pulse Ox 97% on R/A; Weight 83.91 kg (R); Height 5 kc6 ft. 9 in. (R); 14:53 BP 110 / 72; Pulse 122; Resp 18 S; Pulse Ox 100% on R/A; kc6 15:34 BP 104 / 72; Pulse 65; Resp 15 S; Pulse Ox 97% on R/A; kc6 16:38 Pulse 62; Resp 18 S; Pulse Ox 100% on R/A; kc6 17:30 BP 119 / 60; Pulse 68; Resp 18; Pulse Ox 98% ; nj1 14:10 Body Mass Index 27.32 (83.91 kg, 175.26 cm) kc6 13:25 Pain Scale: Adult hb ED Course: 13:23 Patient arrived in ED. im 13:29 EKG done, by ED staff, reviewed by Itz Stokes MD. hb 13:31 Inserted saline lock: 20 gauge in right forearm, using aseptic technique. Blood zm collected. 13:32 Triage completed. hb 13:32 Arm band placed on. hb 13:33 Tiffanie Rinaldi, JOHN is Primary Nurse. kc6 13:33 Patient has correct armband on for positive identification. Placed in gown. Bed in low kc6 position. Call light in reach. Side rails up X2. Adult w/ patient. residential monitor on. Pulse ox on. NIBP on. Pillow given. 13:36 Itz Stokes MD is Attending Physician. rt 13:58 Inserted saline lock: 20 gauge in left forearm, using aseptic technique. kc6 14:02 XRAY Chest (1 view) In Process Unspecified. EDMS 16:16 CT Chest For PE Angio In Process Unspecified. EDMS 17:09 Report given to Dana Del Angel RN. kc6 17:30 No provider procedures requiring assistance completed. IV discontinued, intact, nj1 bleeding controlled, Pressure dressing applied. 17:31 Provided Education on: discharge instructions. nj1 Administered Medications: 13:39 Drug: Metoprolol IVP 5 mg IVP every 5 minutes; Hold for SBP < 100 or HR < 60. x3 Route: kc6 IVP; Site: right forearm; 13:46 Drug: Metoprolol IVP 5 mg IVP every 5 minutes; Hold for SBP < 100 or HR < 60. x3 Route: kc6 IVP; Site: right forearm; 13:51 Drug: Metoprolol IVP 5 mg IVP every 5 minutes; Hold for SBP < 100 or HR < 60. x3 Route: kc6 IVP; Site: right forearm; 14:21 Follow up: Response: No adverse reaction; Cardiac rhythm is unchanged kc6 14:21 Follow up: Response: No adverse reaction; Cardiac rhythm is unchanged kc6 14:21 Follow up: Response: No adverse reaction; Cardiac rhythm is unchanged kc6 14:10 Drug: Diltiazem IVP 10 mg IVP once; Over 2 minutes Route: IVP; Site: right forearm; kc6 14:21 Follow up: Response: No adverse reaction; Cardiac rhythm changed kc6 Medication: 17:31 VIS not applicable for this client. nj1 Outcome: 17:20 Discharge ordered by MD. rt 17:31 Discharged to home ambulatory, with family, nj1 17:31 Condition: stable 17:31 Discharge instructions given to patient, Instructed on discharge instructions, follow up and referral plans. Demonstrated understanding of instructions, follow-up care, 17:35 Patient left the ED. nj1 Signatures: Dispatcher [employer] EDMS Kimberly Munoz RN RN hb Martinez, Zaina zm Campbell, Kaitlyn, RN RN kc6 Itz Stokes MD MD rt Dana Del Angel RN RN nj1 Bibiana Luis Corrections: (The following items were deleted from the chart) 14:27 13:25 Pain: Complains of pain in mid-sternal area Pain does not radiate. Pain began 4 kc6 hours ago. kc6 14:33 14:10 BP 115 / 68; Pulse 70bpm; Resp 20bpm; Spontaneous; Pulse Ox 97% RA; kc6 kc6
[2024-01-03 18:01] VITALS: BP 119/60; TEMP 97.8; O2SAT 98
--- NOTE | 2024-01-04 13:29 | EKG ---
Test Date: 2024-01-03 Test Time: 13:28:41 Assurance Manager Insurance: [employer] MEASUREMENT RESULTS: Intervals: Rate: 153 PA: QRSD: 126 QT: 330 QTc: 526 [place]: P: PA: QRS: 69 T: 199 INTERPRETIVE STATEMENTS: Atrial fibrillation Left bundle branch block Abnormal ECG Compared to ECG 06/29/2023 19:32:38 Sinus tachycardia no longer present Electronically Signed On 01-04-24 13:27:22 CDT by Keven Portillo
== END 2024-01-03 17:35 | disposition home or self-care (01) ==
LOC: ER 13:21
DX: I48.91 Unspecified atrial fibrillation (principal)
CPT/HCPCS: 93005; 85025; 80048; 36415; 85379; 80076; 84443; 84484; 71275; 71045; 96375; 96374; 99285; Q9967

== ENCOUNTER 2024-07-20 17:36 | Inpatient (IN) | payer OTHER, BC ==
[2024-07-20] MEDS ORDERED: dilTIAZem HCL 25 MG/5 ML VIAL IV ONE (17:50)
[2024-07-20 18:04] LABS: Absolute Basophils 0.1 K/uL (0-0.5); Absolute Eosinophils 0.2 K/uL (0-0.5); Absolute Lymphocytes (CBC) 1.5 K/uL (0.7-4.9); Absolute Monocytes 0.9 K/uL (0.1-1.3); Absolute Neutrophil 4.5 K/uL (1.8-8.0); Basophils % 0.9 % (0-1.3); Eosinophils % 2.5 % (0-4.4); Hematocrit 30.9 % (39.6-49.0); Hemoglobin 9.7 g/dL (13.6-17.9); Lymphocytes % 20.7 % (15.3-44.8); MCH 24.2 pg (27.0-35.0); MCHC 31.3 g/dL (32.0-36.0); MCV 77.3 fL (80-100); MPV 7.5 fL (7.6-11.3); Monocytes % 12.9 % (3.3-12.3); Platelets 422 thou/uL (152-406); Red Cell Distribution Width 16.5 % (12.1-15.2)
[2024-07-20 18:05] LABS: PT Prothrombin Time 11.2 SECONDS (9.4-12.5)
--- NOTE | 2024-07-20 18:25 | RAD REPORT ---
EXAMINATION: ONE VIEW CHEST XR CLINICAL INDICATION: PALPITATIONS TECHNIQUE: Frontal chest projection is submitted. Examination is limited by patient positioning and t echnique. COMPARISON: 06/24/2024 FINDINGS: The lungs are diffusely emphysematous but grossly clear. The heart is upper limit of normal in size. No displaced fractures identified. IMPRESSION: COPD without an acute process suspected.
[2024-07-20 18:27] LABS: ALT/SGPT 23 U/L (16-61); AST/SGOT 21 U/L (15-37); Albumin 4.1 g/dL (3.4-5.0); Albumin/Globulin Ratio 1.3 (1.1-1.8); Alkaline Phosphatase 59 U/L (45-117); Anion Gap 11.1 mEq/L (5.0-15.0); BUN Blood Urea Nitrogen 35 mg/dL (7-18); Bicarbonate 26 mEq/L (21-32); Bilirubin Total 0.3 mg/dL (0.2-1.0); Globulin 3.2 g/dL (2.3-3.5); Glomerular Filtration Rate 26 ml/min (=/>90); Glucose Level 95 mg/dL (74-106); Magnesium 2.3 mg/dL (1.6-2.4); NT PRO-BNP 500 pg/mL (<450); Potassium 4.1 mEq/L (3.5-5.1); Protein, Total 7.3 g/dL (6.4-8.2); Sodium Level 138 mEq/L (136-145); Troponin High Sensitivity 19.9 pg/mL (<58.9)
[2024-07-20 18:29] LABS: Bilirubin Direct < 0.2 mg/dL (0-0.2); Bilirubin Indirect, Calculated 0.1 mg/dL (0.2-0.8)
--- NOTE | 2024-07-20 18:57 | ER ---
Nurse's Notes [facility] Name: Kwadwo Bird Age: 78 yrs Sex: Male : 1945 Arrival Date: 07/20/2024 Time: 17:36 Bed 2 Private MD: Diagnosis: Atrial fibrillation with rapid ventricular response, chest pain, palpitations Presentation: 07/20 17:44 Chief complaint: Patient states: feels like he's in Afib since 2pm , took his iw amiodarone but has not helped. Coronavirus screen: At this time, the client does not indicate any symptoms associated with coronavirus-19. Ebola Screen: No symptoms or risks identified at this time. Initial Sepsis Screen: Does the patient meet any 2 criteria? No. Patient's initial sepsis screen is negative. Does the patient have a suspected source of infection? No. Patient's initial sepsis screen is negative. Risk Assessment: Do you want to hurt yourself or someone else? Patient reports no desire to harm self or others. Onset of symptoms was July 20, 2024. 17:44 Method Of Arrival: Wheelchair iw 17:44 Acuity: DEQUAN 2 iw Historical: - Allergies: 17:47 Morphine; iw 17:47 lyrica; iw - Home Meds: 17:47 amiodarone 400 mg oral tablet as needed [Active]; Lasix 40 mg Oral tablet daily iw [Active]; albuterol sulfate 2.5 mg /3 mL (0.083 %) Nebulizer Solution for Nebulization as needed [Active]; Breo Ellipta 50-25 mcg/dose inhalation Blister, With Inhalation Device as needed [Active]; - PMHx: 17:47 Asthma; Chronic obstructive lung disease; iw - PSHx: 17:47 hernia repair; watchman procedure; iw - Immunization history:: Adult Immunizations up to date. - Infectious Disease History:: Denies. - Social history:: Smoking status: Patient/guardian denies using tobacco, but has a distant history of tobacco abuse. Screenin:40 [facility] ED Fall Risk Assessment (Adult) History of falling in the last 3 months, ld1 including since admission No falls in past 3 months (0 pts) Confusion or Disorientation No (0 pts) Intoxicated or Sedated No (0 pts) Impaired Gait No (0 pts) Mobility Assist Device Used No (0 pt) Altered Elimination No (0 pt) Score/Fall Risk Level 0 - 2 = Low Risk Oriented to surroundings, Maintained a safe environment, Educated pt \T\ family on fall prevention, incl call for assistance when getting out of bed, Assessed \T\ reinforced patient's understanding of fall precautions, Provided non-skid footwear, Hourly rounding (assess needs \T\ fall precautionary measures) done, Used ambulatory aids as needed (educated on \T\ assisted with), Used gait belt as appropriate. Abuse screen: Denies threats or abuse. Denies injuries from another. Nutritional screening: No deficits noted. Tuberculosis screening: No symptoms or risk factors identified. Assessment: 17:40 General: Appears in no apparent distress. uncomfortable, Behavior is calm, cooperative, ld1 appropriate for age. Pain: Complains of pain in chest Pain does not radiate. Pain currently is 6 out of 10 on a pain scale. Quality of pain is described as heavy, Pain began 1 hour ago. Is intermittent. Neuro: Level of Consciousness is awake, alert, obeys commands, Oriented to person, place, time, situation. Cardiovascular: Capillary refill < 3 seconds Patient's skin is warm and dry. Rhythm is atrial fibrillation with rapid ventricular response. 17:40 Respiratory: Airway is patent Respiratory effort is even, unlabored. GI: Abdomen is ld1 flat, non-distended. : No signs and/or symptoms were reported regarding the genitourinary system. EENT: No signs and/or symptoms were reported regarding the EENT system. Derm: No signs and/or symptoms reported regarding the dermatologic system. Musculoskeletal: No signs and/or symptoms reported regarding the musculoskeletal system. 18:38 Reassessment: Patient appears in no apparent distress at this time. No changes from ld1 previously documented assessment. Patient and/or family updated on plan of care and expected duration. Pain level reassessed. 19:40 General: Appears in no apparent distress. uncomfortable, Behavior is calm, cooperative. ay Pain: Denies pain. Neuro: Level of Consciousness is awake, alert, obeys commands, Oriented to person, place, time, situation, Speech is normal. Cardiovascular: Capillary refill < 3 seconds Patient's skin is warm and dry. Rhythm is sinus tachycardia. Respiratory: Airway is patent Respiratory effort is even, unlabored, Respiratory pattern is regular, symmetrical. GI: Abdomen is flat. : No signs and/or symptoms were reported regarding the genitourinary system. EENT: No signs and/or symptoms were reported regarding the EENT system. Derm: No signs and/or symptoms reported regarding the dermatologic system. Musculoskeletal: No signs and/or symptoms reported regarding the musculoskeletal system. 22:53 Reassessment: Receiving RN to call back for a report. ay Vital Signs: 17:40 BP 103 / 59; Pulse 102; Resp 25; Pulse Ox 96% on R/A; Pain 6/10; ld1 17:44 BP 108 / 87; Pulse 152; Resp 20; Temp 97.9; Pulse Ox 98% ; Weight 82.1 kg; Height 5 ft. iw 9 in. ; 18:38 BP 107 / 57; Pulse 104; Resp 16; Pulse Ox 96% on R/A; ld1 19:45 BP 103 / 86; Pulse 126; Resp 18; Pulse Ox 96% on R/A; ay 23:00 BP 112 / 71; Pulse 122; Resp 18; Pulse Ox 98% on R/A; ay 17:44 Body Mass Index 26.73 (82.10 kg, 175.26 cm) iw 17:40 Pain Scale: Adult ld1 ED Course: 17:38 Patient arrived in ED. iw 17:39 Waqas Law MD is Attending Physician. sp3 17:40 Patient has correct armband on for positive identification. Placed in gown. Bed in low ld1 position. Call light in reach. Side rails up X2. district associate judge on. Pulse ox on. NIBP on. Door closed. Noise minimized. Warm blanket given. 17:40 No provider procedures requiring assistance completed. Inserted saline lock: 20 gauge ld1 in left antecubital area, using aseptic technique. Blood collected. Flushed with 10 mL NS. 17:47 Triage completed. iw 17:51 Arm band placed on. iw 17:58 Jocelyn Klein, JOHN is Primary Nurse. ld1 18:18 XRAY Chest (1 view) In Process Unspecified. EDMS 18:56 Nico Dickens MD is Hospitalizing Provider. sp3 19:40 district associate judge on. Pulse ox on. NIBP on. Door closed. Lights dimmed. ay 23:46 Patient admitted, IV remains in place. ay Administered Medications: 17:51 Drug: Diltiazem IVP 20 mg IVP once; Over 2 minutes Route: IVP; Site: left antecubital; ld1 18:00 Follow up: Response: No adverse reaction ld1 17:54 Drug: Diltiazem IVP 10 mg IVP once; Over 2 minutes Route: IVP; Site: left antecubital; ld1 18:00 Follow up: Response: No adverse reaction ld1 Medication: 17:40 VIS not applicable for this client. ld1 Outcome: 18:57 Decision to Hospitalize by Provider. sp3 23:46 Admitted to ICU accompanied by nurse, via stretcher, on monitor, Report called to donna Harding RN 23:46 Condition: stable 23:46 Instructed on the need for admit, 23:48 Patient left the ED. ay Signatures: Dispatcher [employer] EDJenni Gilliland RN RN iw Jocelyn Klein RN RN ld1 Waqas Law MD MD sp3 Fátima Jose RN RN ay Corrections: (The following items were deleted from the chart) 17:51 17:44 BP 108 / 87; Resp 20bpm; Pulse Ox 98%; Temp 97.9F; 82.1 kg; Height 5 ft. 9 in.; iw BMI: 26.7; iw
--- NOTE | 2024-07-20 18:57 | EDPHYS ---
Physician Documentation [facility] Name: Kwdawo Bird Age: 78 yrs Sex: Male : 1945 Arrival Date: 07/20/2024 Time: 17:36 Bed 2 Private MD: ED Physician Waqas Law HPI: 07/20 17:58 This 78 yrs old Male presents to ER via Wheelchair with complaints of Palpitations - sp3 AFIB. 17:58 78-year-old male with history of atrial fibrillation, status post Watchman procedure, sp3 COPD now presents to the ED with chief complaint palpitations and chest pain that started approximately 3 PM today. Patient took a 400 mg dose of p.o. amiodarone which did not help and now patient presents to the ED for further intervention. 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 Patient denies fever, shortness of breath, abdominal pain, vomit, diarrhea, syncope, or any other signs or symptoms on ROS at this time. Chest pain is described as dull and center chest.. Historical: - Allergies: 17:47 Morphine; iw 17:47 lyrica; iw - Home Meds: 17:47 amiodarone 400 mg oral tablet as needed [Active]; Lasix 40 mg Oral tablet daily iw [Active]; albuterol sulfate 2.5 mg /3 mL (0.083 %) Nebulizer Solution for Nebulization as needed [Active]; Breo Ellipta 50-25 mcg/dose inhalation Blister, With Inhalation Device as needed [Active]; - PMHx: 17:47 Asthma; Chronic obstructive lung disease; iw - PSHx: 17:47 hernia repair; watchman procedure; iw - Immunization history:: Adult Immunizations up to date. - Infectious Disease History:: Denies. - Social history:: Smoking status: Patient/guardian denies using tobacco, but has a distant history of tobacco abuse. ROS: 17:59 Constitutional: Negative for fever, chills, and weight loss, Eyes: Negative for injury, sp3 pain, redness, and discharge, ENT: Negative for injury, pain, and discharge, Neck: Negative for injury, pain, and swelling, Respiratory: Negative for shortness of breath, cough, wheezing, and pleuritic chest pain, Abdomen/GI: Negative for abdominal pain, nausea, vomiting, diarrhea, and constipation, Back: Negative for injury and pain, : Negative for injury, bleeding, discharge, and swelling, MS/Extremity: Negative for injury and deformity, Skin: Negative for injury, rash, and discoloration, Neuro: Negative for headache, weakness, numbness, tingling, and seizure, Psych: Negative for depression, anxiety, suicide ideation, homicidal ideation, and hallucinations, Allergy/Immunology: Negative for hives, rash, and allergies, Endocrine: Negative for neck swelling, polydipsia, polyuria, polyphagia, and marked weight changes, Hematologic/Lymphatic: Negative for swollen nodes, abnormal bleeding, and unusual bruising, 17:59 All other systems are negative, Exam: 17:59 Constitutional: This is a well developed, well nourished patient who is awake, alert, sp3 and in no acute distress. Head/Face: Normocephalic, atraumatic. Eyes: Pupils equal round and reactive to light, extra-ocular motions intact. Lids and lashes normal. Conjunctiva and sclera are non-icteric and not injected. Cornea within normal limits. Periorbital areas with no swelling, redness, or edema. Neck: Trachea midline, no thyromegaly or masses palpated, and no cervical lymphadenopathy. Supple, full range of motion without nuchal rigidity, or vertebral point tenderness. No Meningismus. Chest/axilla: Normal chest wall appearance and motion. Nontender with no deformity. No lesions are appreciated. Respiratory: Lungs have equal breath sounds bilaterally, clear to auscultation and percussion. No rales, rhonchi or wheezes noted. No increased work of breathing, no retractions or nasal flaring. Abdomen/GI: Soft, non-tender, with normal bowel sounds. No distension or tympany. No guarding or rebound. No evidence of tenderness throughout. Back: No spinal tenderness. No costovertebral tenderness. Full range of motion. Skin: Warm, dry with normal turgor. Normal color with no rashes, no lesions, and no evidence of cellulitis. MS/ Extremity: Pulses equal, no cyanosis. Neurovascular intact. Full, normal range of motion. Neuro: Awake and alert, GCS 15, oriented to person, place, time, and situation. Cranial nerves II-XII grossly intact. Motor strength 5/5 in all extremities. Sensory grossly intact. Cerebellar exam normal. Normal gait. Psych: Awake, alert, with orientation to person, place and time. Behavior, mood, and affect are within normal limits. 17:59 Cardiovascular: Rate: tachycardic, Rhythm: irregularly irregular, 18:07 ECG was reviewed by the Attending Physician. EKG demonstrates atrial fibrillation with sp3 RVR at 154 with QTc 554, left bundle nonspecific diffuse rate related changes without evidence of acute ischemia. Vital Signs: 17:40 BP 103 / 59; Pulse 102; Resp 25; Pulse Ox 96% on R/A; Pain 6/10; ld1 17:44 BP 108 / 87; Pulse 152; Resp 20; Temp 97.9; Pulse Ox 98% ; Weight 82.1 kg; Height 5 ft. iw 9 in. ; 18:38 BP 107 / 57; Pulse 104; Resp 16; Pulse Ox 96% on R/A; ld1 19:45 BP 103 / 86; Pulse 126; Resp 18; Pulse Ox 96% on R/A; ay 23:00 BP 112 / 71; Pulse 122; Resp 18; Pulse Ox 98% on R/A; ay 17:44 Body Mass Index 26.73 (82.10 kg, 175.26 cm) iw 17:40 Pain Scale: Adult ld1 MDM: 17:39 Medical Screening Exam initiated sp3 18:08 Data reviewed: vital signs, nurses notes, old medical records, lab test result(s), EKG, sp3 radiologic studies. ED course: 78-year-old male with atrial fibrillation with RVR. Patient was given Cardizem 10 mg followed by Cardizem 20 mg at which rate is now controlled between 90 and 110. Patient still in atrial fibrillation. Chest pain is improved. Remainder of lab work is pending. Disposition probable 23-hour observation for cardiology evaluation and possible further amiodarone infusion.. 07/20 17:39 Order name: Basic Metabolic Panel; Complete Time: 18:31 sp3 07/20 17:39 Order name: CBC with Diff; Complete Time: 18:27 sp3 07/20 17:39 Order name: LFT's; Complete Time: 18:31 sp3 07/20 17:39 Order name: Magnesium; Complete Time: 18:31 sp3 07/20 17:39 Order name: NT PRO-BNP; Complete Time: 18:31 sp3 07/20 17:39 Order name: PT-INR; Complete Time: 18:27 sp3 07/20 17:39 Order name: Troponin HS; Complete Time: 18:31 sp3 07/20 19:24 Order name: Magnesium EDMS 07/20 19:24 Order name: Phosphorus EDMS 07/20 19:24 Order name: T4 Free EDMS 07/20 19:24 Order name: Thyroid Stimulating Hormone EDMS 07/20 19:24 Order name: Troponin High Sensitivity EDMS 07/20 19:24 Order name: Troponin High Sensitivity EDMS 07/20 19:24 Order name: Troponin High Sensitivity EDMS 07/20 19:24 Order name: Troponin High Sensitivity EDMS 07/20 17:39 Order name: XRAY Chest (1 view); Complete Time: 18:27 sp3 07/20 19:24 Order name: Echo without Doppler (2D) EDMS 07/20 19:24 Order name: CONS Physician Consult EDMS 07/20 17:39 Order name: Cardiac monitoring; Complete Time: 17:59 sp3 07/20 17:39 Order name: EKG - Nurse/Tech; Complete Time: 17:59 sp3 07/20 17:39 Order name: IV Saline Lock; Complete Time: 17:59 sp3 07/20 17:39 Order name: Labs collected and sent; Complete Time: 17:59 sp3 07/20 17:39 Order name: O2 Per Protocol; Complete Time: 17:59 sp3 07/20 17:39 Order name: O2 Sat Monitoring; Complete Time: 17:59 sp3 Administered Medications: 17:51 Drug: Diltiazem IVP 20 mg IVP once; Over 2 minutes Route: IVP; Site: left antecubital; ld1 18:00 Follow up: Response: No adverse reaction ld1 17:54 Drug: Diltiazem IVP 10 mg IVP once; Over 2 minutes Route: IVP; Site: left antecubital; ld1 18:00 Follow up: Response: No adverse reaction ld1 Disposition Summary: 07/20/24 18:57 Hospitalization Ordered Notes: Hospitalization Status: Observation sp3 Provider: Nico Dickens sp3 Condition: Stable sp3 Problem: an acute exacerbation sp3 Symptoms: have worsened sp3 Bed/Room Type: Standard sp3 Location: Intensive Care Unit(07/20/24 19:43) [facility] Room Assignment: 1-(07/20/24 21:30) Diagnosis - Atrial fibrillation with rapid ventricular response, chest pain, palpitations sp3 Forms: - Medication Reconciliation Form sp3 - SBAR form sp3 - Leadership Thank You Letter sp3 Critical care time excluding procedures: 18:55 Critical care time: Bedside Care: 20 minutes, Consultation: 10 minutes. Total time: 30 sp3 minutes Signatures: Dispatcher [employer] EDJenni Gilliland, JOHN LOPEZ Charity Lam RN RN cg Jocelyn Klien RN RN ld1 Waqas Law MD MD sp3 Eda Ayoub [facility] Corrections: (The following items were deleted from the chart) 17:40 17:40 BASIC METABOLIC PANEL+C.LAB.BRZ ordered. EDMS EDMS 17:40 17:40 CBC+H.LAB.BRZ ordered. EDMS EDMS 17:40 17:40 HEPATIC FUNCTION+C.LAB.BRZ ordered. EDMS EDMS 17:40 17:40 MAGNESIUM+C.LAB.BRZ ordered. EDMS EDMS 17:40 17:40 PROBNP+C.LAB.BRZ ordered. EDMS EDMS 17:40 17:40 PROTIME (+INR)+COAG.LAB.BRZ ordered. EDMS EDMS 17:40 17:40 Troponin High Sensitivity+C.LAB.BRZ ordered. EDMS EDMS 17:40 17:40 Chest Single View+RAD.RAD.BRZ ordered. EDMS EDMS 19:32 18:57 sp3 f 19:43 18:57 Telemetry/MedSurg (observation) sp3 f 19:43 19:32 230 kmf kmf 19:43 19:43 f f 21:30 19:43 [facility] [place]
--- NOTE | 2024-07-20 19:38 | P.HP ---
Certification for Inpatient Patient admitted to: Inpatient With expected LOS: >2 Midnights Practitioner: I am a practitioner with admitting privileges, knowledge of patient current condition, hospital course, and medical plan of care. Services: Services provided to patient in accordance with Admission requirements found in Title 42 Section 412.3 of the Code of Federal Regulations Patient History Date of Service: 07/20/24 Reason for admission: palpitation History of Present Illness: 78-year-old male with past medical history of chronic kidney disease, atrial fibrillation, COPD presents to the emergency room with complaints of palpitations. He was noted to be in A-fib with RVR. He does follow with cardiology in [place]. Has had a previous Watchman procedure 2 years ago. He is not on anticoagulation. He denies any difficulty breathing cough fevers diarrhea or syncope. He did also report substernal chest pain that started around 3 PM today. In the ER he was noted to be in A-fib with RVR. The patient did report taking 400 mg of amiodarone today when his heart rate had increased Allergies No Known Allergies Allergy (Unverified 08/29/11 11:09) Home Medications: Albuterol Inhaler [Ventolin Inhaler*] 1 puff IH TID PRN 06/28/23 Furosemide 20 mg PO BID 06/28/23 Pantoprazole Sodium [Protonix] 40 mg PO DAILY 06/28/23 Amiodarone HCl [Cordarone*] 200 mg PO BID #60 tab 07/01/23 Amox/Clavulanate [Augmentin 875-125 Tab] 875 mg PO BID 5 Days #10 tab 07/01/23 Doxycycline Hyclate 100 mg PO BID 5 Days #10 cap 07/01/23 predniSONE [Deltasone] 20 mg PO BID 3 Days #6 tab 07/01/23 - Past Medical/Surgical History -: CHFunknown EF -: COPD -: CKDunknown baseline -: History of A-fib status post Watchman -: Hypertension -: Asthma -: Hernia repair -: Watchman procedure Psychosocial/ Personal History: Lives at home with family - Social History Alcohol use: No CD- Drugs: No Caffeine use: Yes Physical Examination - Physical Exam General: Alert, Oriented x3 HEENT: Atraumatic, Normocephalic Respiratory: Clear to auscultation bilaterally, Normal air movement Cardiovascular: No edema, Normal pulses, Irregular heart rate/rhythm Gastrointestinal: Normal bowel sounds, Soft and benign Musculoskeletal: No clubbing, No swelling Integumentary: No rashes - Studies Laboratory Data (last 24 hrs) 07/20/24 07/20/24 07/20/24 17:54 17:54 17:54 WBC 7.10 Hgb 9.7 L Hct 30.9 L Plt Count 422 H PT 11.2 INR 1.00 Sodium 138 Potassium 4.1 BUN 35 H Creatinine 2.49 H Glucose 95 Magnesium 2.3 Total Bilirubin 0.3 AST 21 ALT 23 Alkaline Phosphatase 59 Assessment and Plan - Problems (Diagnosis) (1) Atrial fibrillation with rapid ventricular response Current Visit: No Status: Acute - Plan 78-year-old male with history of atrial fibrillation, CKD, COPD presents with A- fib with RVR. Atrial Fibrillation with RVR chest pain COPD CKD Anemia Plan: Afib/chest pain: Will admit him to the ICU placed him on Cardizem drip. Check an echocardiogram. Serial cardiac enzymes. Await home medication reconciliation. Cardiology paged. Check echocardiogram. COPD --Stable on room air. Await medication reconciliation restart inhalers as needed CKD -- Creatinine appears to be slightly elevated than previously. Monitor renally dose medications Anemia -- transfuse for hemoglobin less than 7 CODE STATUS: Full DVT: Heparin - Advance Directives Does patient have a Living Will: No Does patient have a Durable POA for Healthcare: No - Code Status/Comfort Care Code Status Assessed: Yes Code Status: Full Code
[2024-07-20] MEDS ORDERED: ACETAMINOPHEN 500 MG TAB ONE (19:58)
[2024-07-20] MEDS: ACETAMINOPHEN 500 MG TAB PO PRN (19:59)
[2024-07-21] MEDS: HEPARIN 5000 UNIT/ML 1 ML VIAL SQ SCH (00:15)
[2024-07-21] MEDS: ASPIRIN EC 81 MG TAB PO ONE (00:17)
[2024-07-21 00:19] LABS: Magnesium 2.4 mg/dL (1.6-2.4); Phosphorus 3.6 mg/dL (2.5-4.9); Thyroid Stimulating Hormone 1.33 uIU/mL (0.358-3.740)
[2024-07-21] MEDS: AMIODARONE HCL 150 MG in D5W 100 ML IV STA (00:20)
[2024-07-21] MEDS: AMIODARONE HCL 450 MG in D5W 241 ML IV SCH (00:35)
[2024-07-21] MEDS: AMIODARONE IN DEXTROSE,ISO-OSM 360 MG/200 ML BAG IV ONE ×2 (00:35→06:35)
[2024-07-21 01:13] LABS: PT Prothrombin Time 11.1 SECONDS (9.4-12.5); PTT, Activated Partial Thromb 30.9 SECONDS (24.3-36.9); Protime INR 0.99
[2024-07-21] MEDS ORDERED: HEPARIN/D5W 25,000 UNIT/500 ML BAG IV PRN (01:18)
[2024-07-21] MEDS ORDERED: HEPARIN 10,000 UNIT/10 ML VIAL IV ONE ×2 (01:18→01:29)
[2024-07-21] MEDS: HEPARIN 5000 UNIT/ML 1 ML VIAL IV ONE (01:27)
[2024-07-21] MEDS ORDERED: HEPARIN/D5W 500 ML IV PRN (01:29)
[2024-07-21] MEDS: HEPARIN/D5W 25,000 UNIT/500 ML BAG IV SCH (01:49)
[2024-07-21] MEDS: ATORVASTATIN 80 MG TAB PO SCH (01:51)
[2024-07-21 06:14] LABS: Albumin 3.4 g/dL (3.4-5.0); Albumin/Globulin Ratio 1.3 (1.1-1.8); Anion Gap 9.9 mEq/L (5.0-15.0); Bilirubin Total 0.2 mg/dL (0.2-1.0); Globulin 2.7 g/dL (2.3-3.5); Magnesium 2.3 mg/dL (1.6-2.4); Potassium 3.9 mEq/L (3.5-5.1); Protein, Total 6.1 g/dL (6.4-8.2)
--- NOTE | 2024-07-21 09:31 | P.CNS ---
Date of Consult: 07/21/24 Chief Complaint: palpitation History of Present Illness: Patient with PMH of HTN, Atrial fibrillation s/p watchman procedure 2 years ago at the [facility], presented with palpitations, sense og indigestion and upper throat pain, denies chest pain, no syncope, no SOB. Allergies No Known Allergies Allergy (Unverified 08/29/11 11:09) Home medications list reviewed: Yes Home Medications: Albuterol Inhaler [Ventolin Inhaler*] 1 puff IH TID PRN 06/28/23 Furosemide 20 mg PO BID 06/28/23 Pantoprazole Sodium [Protonix] 40 mg PO DAILY 06/28/23 Amiodarone HCl [Cordarone*] 200 mg PO BID #60 tab 07/01/23 - Past Medical/Surgical History -: CHFunknown EF -: COPD -: CKDunknown baseline -: History of A-fib status post Watchman -: Hypertension -: Asthma -: Hernia repair -: Watchman procedure Psychosocial/ Personal History: Lives at home with family - Social History Smoking Status: Former smoker Alcohol use: Yes CD- Drugs: No Caffeine use: Yes Place of Residence: Home Review of Systems 10-point ROS is otherwise unremarkable Physical Examination Temp Pulse Resp BP Pulse Ox 97.0 F 103 H 18 98/68 97 07/21/24 07:00 07/21/24 09:00 07/21/24 09:00 07/21/24 09:00 07/21/24 09:00 General: Alert, In no apparent distress HEENT: Atraumatic, PERRLA, Mucous membr. moist/pink, EOMI, Sclerae nonicteric Neck: Supple, 2+ carotid pulse no bruit, No LAD, Without JVD or thyroid abnormality Respiratory: Clear to auscultation bilaterally, Normal air movement Cardiovascular: Irregular heart rate/rhythm Gastrointestinal: Normal bowel sounds, No tenderness Musculoskeletal: No tenderness Integumentary: No rashes Neurological: Normal gait, Normal speech, Normal tone, Normal affect Lymphatics: No axilla or inguinal lymphadenopathy Laboratory Data (last 24 hrs) 07/20/24 07/20/24 07/20/24 17:54 17:54 17:54 WBC 7.10 Hgb 9.7 L Hct 30.9 L Plt Count 422 H PT 11.2 INR 1.00 Sodium 138 Potassium 4.1 BUN 35 H Creatinine 2.49 H Glucose 95 Magnesium 2.3 Total Bilirubin 0.3 AST 21 ALT 23 Alkaline Phosphatase 59 - Problems (1) Atrial fibrillation with rapid ventricular response Current Visit: No Status: Acute Plan: Patient is in RVR, on amidoarone and heparin drip. NPO for ZAHRA DCCV would recommend amiodarone 200 mg po BID Also recommend Eliquis 5 mg po BID for 30 days after cardiversion then can go back on ASA 81 mg daily (2) Elevated troponin Current Visit: No Status: Acute Plan: mild elevation with no significant delta, most likely type 2 from AF RVR, recommend to keep trending until peak and down trending get echo, if normal then outpatient stress test.
[2024-07-21] MEDS: propofoL 200 MG/20 ML VIAL IV ONE ×2 (09:34→10:36)
[2024-07-21] MEDS: SUCCINYLCHOLINE 20 MG/ML (10 ML) IV ONE (09:34)
[2024-07-21] MEDS: LIDOCAINE 2% MPF 5 ML VIAL ONE (09:34)
[2024-07-21] MEDS: NA CHLORIDE 0.9% 500 ML ONE (09:37)
--- NOTE | 2024-07-21 14:11 | ECHO ---
HEIGHT: 5 ft 9 in WEIGHT: 181 lb 0 oz DATE OF STUDY: 07/21/[address]: Nico Dickens MD 2-DIMENSIONAL: YES M.MODE: YES DOPPLER: YES COLOR FLOW: YES TDS: NO PORTABLE: YES DEFINITY: NO BUBBLE STUDY: NO DIAGNOSIS: CHEST PAIN CARDIAC HISTORY: CATHERIZATION: SURGERY: PROSTHETIC VALVE: PACEMAKER: MEASUREMENTS (cm) DIASTOLIC (NORMALS) SYSTOLIC (NORMALS) IVSd 1.4 (0.6-1.2) LA Diam 4.2 (1.9-4.0) LVEF 40-45% LVIDd 4.1 (3.5-5.7) LVIDs 3.3 (2.0-3.5) %FS 20% LVPWd 1.6 (0.6-1.2) Ao Diam 3.3 (2.0-3.7) 2 DIMENSIONAL ASSESSMENT: RIGHT ATRIUM: NORMAL LEFT ATRIUM: SEVERELY DILATED RIGHT VENTRICLE: NORMAL LEFT VENTRICLE: NORMAL TRICUSPID VALVE: MILD TRICUSPID REGURGITATION MITRAL VALVE: SEVERE MITRAL ANNULAR CALCIFICATION PULMONIC VALVE: NORMAL AORTIC VALVE: NORMAL PERICARDIAL EFFUSION: NONE AORTIC ROOT: NORMAL LEFT VENTRICULAR WALL MOTION: MODERATE GLOBAL HYPOKINESIS. DOPPLER/COLOR FLOW: DIASTOLIC DYSFUNCTION. COMMENTS: 1. MODERATELY REDUCED LEFT VENTRICULAR SYSTOLIC FUNCTION. LEFT VENTRICULAR EJECTION FRACTION 40-45%. MODERATE GLOBAL HYPOKINESIS. 2. DIASTOLIC DYSFUNCTION. 3. SEVERE MITRAL ANNULAR CALCIFICATION. MILD MITRAL REGURGITATION. 4. ELEVATED FILLING PRESSURE. RIGHT ATRIAL PRESSURE 15-20 mmHg. TECHNOLOGIST: NIKITA CAPELLAN
--- NOTE | 2024-07-21 14:15 | TEE ---
TRANSESOPHAGEAL ECHOCARDIOGRAM REPORT CARDIOLOGY DEPARTMENT DATE OF STUDY: 07/21/2024 HEIGHT: 5'9 WEIGHT: 181 lbs DIAGNOSIS: ATRIAL FIBRILLATION 2 DIMENSIONAL ASSESSMENT: RIGHT ATRIUM: NORMAL LEFT ATRIUM: SEVERELY DILATED RIGHT VENTRICLE: NORMAL LEFT VENTRICLE: NORMAL TRICUSPID VALVE: MILD TRICUSPID REGURGITATION MITRAL VALVE: MILD MITRAL REGURGITATION PULMONIC VALVE: NORMAL AORTIC VALVE: NORMAL PERICARDIAL EFFUSION: NONE AORTIC ROOT: NORMAL COMMENTS: 1. NORMAL SEATED LEFT ATRIAL APPENDAGE CLOSURE DEVICE, WATCHMAN. NO CLOT. NO LEAK. 2. MILD MITRAL REGURGITATION. TECHNOLOGIST: NIKITA CAPELLAN
[2024-07-21 16:15] VITALS: O2SAT 97
--- NOTE | 2024-07-21 18:34 | OP ---
Date of Procedure: 07/21/2024 Surgeon: Raffi Cuello Procedure Performed: Synchronized transesophageal echocardiogram cardioversion. Indication For Procedure: Atrial fibrillation. Complications: None. Estimated Blood Loss: None. Sedation: Done by Anesthesia team. Description Of Procedure: After risks, and benefits, and alternatives were explained to the patient, patient agreed to proceed with procedure and signed informed consent. The patient was placed in the right position in the ICU bed, and time-out was performed. Sedation was administered by Anesthesia team. ZAHRA probe was inserted, images were obtained, and the ZAHRA probe was out and synchronized cardi oversion was done with 200 joules. Patient was converted back into sinus rhythm. Assessment And Plan: Atrial fibrillation, status post successful transesophageal echocardiogram card ioversion. The plan is to: 1.Continue amiodarone 200 mg p.o. b.i.d. 2.Continue Eliquis 5 mg p.o. b.i.d. for 1 month, then discontinue if the patient has a Watchman. GLYNN Voice ID: [id number] Report ID: [id number]
[2024-07-21] MEDS: AMIODARONE HCL 200 MG TAB PO SCH (21:19)
[2024-07-21] MEDS: APIXABAN 5 MG TABLET PO SCH (21:19)
[2024-07-21 23:46] VITALS: BMI 26.7
--- NOTE | 2024-07-22 09:02 | P.PN ---
Subjective Date of Service: 07/22/24 Chief Complaint: palpitation Subjective: No new changes, No C/O voiced, Tolerating diet, Ambulating, Improving Review of Systems 10-point ROS is otherwise unremarkable Physical Examination - Vital Signs Temperature: 97.6 F Blood Pressure: 142/71 Pulse: 65 Respirations: 18 Pulse Ox (%): 96 - Physical Exam General: Alert, In no apparent distress HEENT: Atraumatic, PERRLA, EOMI Neck: Supple, JVD not distended Respiratory: Clear to auscultation bilaterally, Normal air movement Cardiovascular: Regular rate/rhythm, Normal S1 S2 Gastrointestinal: Normal bowel sounds, No tenderness Musculoskeletal: No tenderness Integumentary: No rashes Neurological: Normal speech, Normal tone, Normal affect Lymphatics: No axilla or inguinal lymphadenopathy - Studies Medications List Reviewed: Yes Assessment And Plan - Current Problems (Diagnosis) (1) Atrial fibrillation with rapid ventricular response Current Visit: No Status: Acute Plan: Patient is s/p ZAHRA DCCV Continue amiodarone 200 mg po BID Recommend Eliquis 5 mg po BID for 30 days after cardiversion then can go back on ASA 81 mg daily (2) Elevated troponin Current Visit: No Status: Acute Plan: mild elevation with no significant delta, most likely type 2 from AF RVR, recommend to keep trending until peak and down trending Outpatient stress test.
[2024-07-22 11:56] LABS: Absolute Basophils 0.1 K/uL (0-0.5); Absolute Eosinophils 0.2 K/uL (0-0.5); Absolute Lymphocytes (CBC) 0.8 K/uL (0.7-4.9); Absolute Monocytes 0.7 K/uL (0.1-1.3); Basophils % 1.1 % (0-1.3); Hematocrit 28.5 % (39.6-49.0); Hemoglobin 8.7 g/dL (13.6-17.9); Lymphocytes % 17.6 % (15.3-44.8); MCH 23.8 pg (27.0-35.0); MCHC 30.5 g/dL (32.0-36.0); MCV 77.8 fL (80-100); MPV 7.8 fL (7.6-11.3); Monocytes % 14.9 % (3.3-12.3); Neutrophils % 62.4 % (41.7-73.7); Platelets 333 thou/uL (152-406); RBC Red Blood Cell Count 3.66 M/uL (4.33-5.43); Red Cell Distribution Width 16.3 % (12.1-15.2)
[2024-07-22 12:11] LABS: Albumin 3.3 g/dL (3.4-5.0); Albumin/Globulin Ratio 1.2 (1.1-1.8); Anion Gap 8.3 mEq/L (5.0-15.0); Bilirubin Total 0.3 mg/dL (0.2-1.0); Globulin 2.7 g/dL (2.3-3.5); Potassium 4.3 mEq/L (3.5-5.1)
[2024-07-22 12:24] VITALS: BP 150/70; TEMP 98.3
--- NOTE | 2024-07-26 11:01 | EKG ---
Test Date: 2024-07-21 Test Time: 10:29:20 Sheetrock Applicator: ZORAN MEASUREMENT RESULTS: Intervals: Rate: 66 [place]: 170 QRSD: 150 QT: 456 QTc: 478 [place]: P: [place]: 170 QRS: 48 T: 156 INTERPRETIVE STATEMENTS: Normal sinus rhythm Left bundle branch block Abnormal ECG Compared to ECG 07/20/2024 17:46:00 Atrial fibrillation no longer present Electronically Signed On 07-26-24 10:54:02 CHIEF SUBSTATION OPERATOR by Raffi Cuello
--- NOTE | 2024-07-26 11:03 | EKG ---
Test Date: 2024-07-20 Test Time: 17:46:00 Field Test Engineer: HOOD MEASUREMENT RESULTS: Intervals: Rate: 154 [place]: QRSD: 146 QT: 346 QTc: 554 [place]: P: [place]: QRS: 74 T: 95 INTERPRETIVE STATEMENTS: Atrial fibrillation with rapid ventricular response Left bundle branch block Abnormal ECG Compared to ECG 01/03/2024 13:28:41 No significant changes Electronically Signed On 07-26-24 10:55:38 ENTERPRISE APPLICATION DEVELOPER by Raffi Cuello
== END 2024-07-22 13:37 | disposition home or self-care (01) | DRG 280 ==
LOC: ER 17:36 → ERHOLD 19:18 → 3RD-ICU 21:46 → 4TH 07-21 17:23
PROVIDERS: ADMIT Internal Medicine; ATTEND Hospitalist
PROC: B24BZZ4 Ultrasonography of Heart with Aorta, Transesophageal (ICD-10-PCS; principal; 2024-07-21)
PROC: 5A2204Z Restoration of Cardiac Rhythm, Single (ICD-10-PCS; 2024-07-21)
DX: I48.91 Unspecified atrial fibrillation (principal); I50.21 Acute systolic (congestive) heart failure; I21.A1 Myocardial infarction type 2; I13.0 Hypertensive heart and chronic kidney disease with heart failure and stage 1 through stage 4 chronic kidney disease, or unspecified chronic kidney disease; I42.8 Other cardiomyopathies; N18.9 Chronic kidney disease, unspecified; D63.1 Anemia in chronic kidney disease; I49.9 Cardiac arrhythmia, unspecified; J44.9 Chronic obstructive pulmonary disease, unspecified; Z88.5 Allergy status to narcotic agent; Z88.8 Allergy status to other drugs, medicaments and biological substances; Z79.52 Long term (current) use of systemic steroids; Z79.899 Other long term (current) drug therapy; Z87.891 Personal history of nicotine dependence
CPT/HCPCS: 01922; 36415; 71045; 80048; 80053; 80061; 80076; 82947; 83036; 83735; 83880; 84100; 84439; 84443; 84484; 85025; 85610; 85730; 92960; 93005; 93306; 93312; 96374; 99285; J0282; J1644; J2003; J2704; J7040

== ENCOUNTER 2024-09-26 17:04 | Inpatient (IN) | payer OTHER, BC ==
[2024-09-26] MEDS ORDERED: ALBUTEROL 2.5 MG/3 ML NEB SOL ONE (17:42)
[2024-09-26] MEDS ORDERED: IPRATROPIUM BROM 0.5MG/2.5ML ONE (17:42)
[2024-09-26] MEDS ORDERED: METHYLPREDNISOLONE 125 MG INJ ONE (17:42)
[2024-09-26 17:51] LABS: Absolute Eosinophils 0.2 K/uL (0-0.5); Absolute Lymphocytes (CBC) 0.6 K/uL (0.7-4.9); Absolute Monocytes 0.9 K/uL (0.1-1.3); Absolute Neutrophil 5.2 K/uL (1.8-8.0); Basophils % 0.5 % (0-1.3); Eosinophils % 3.4 % (0-4.4); Hematocrit 24.1 % (39.6-49.0); Hemoglobin 7.3 g/dL (13.6-17.9); Lymphocytes % 8.4 % (15.3-44.8); MCH 23.3 pg (27.0-35.0); MCHC 30.1 g/dL (32.0-36.0); MCV 77.4 fL (80-100); MPV 7.1 fL (7.6-11.3); Neutrophils % 74.7 % (41.7-73.7); Platelets 418 thou/uL (152-406); RBC Red Blood Cell Count 3.12 M/uL (4.33-5.43); Red Cell Distribution Width 18.8 % (12.1-15.2)
[2024-09-26 17:53] LABS: PT Prothrombin Time 11.8 SECONDS (10-13.0); Protime INR 1.04
[2024-09-26 18:06] LABS: ALT/SGPT 21 U/L (16-61); AST/SGOT 18 U/L (15-37); Albumin 3.4 g/dL (3.4-5.0); Alkaline Phosphatase 73 U/L (45-117); Anion Gap 8.3 mEq/L (5.0-15.0); BUN Blood Urea Nitrogen 30 mg/dL (7-18); Bicarbonate 25 mEq/L (21-32); Bilirubin Total 0.3 mg/dL (0.2-1.0); Ferritin 82.4 ng/mL (26-388); Globulin 3.3 g/dL (2.3-3.5); Glomerular Filtration Rate 28 ml/min (=/>90); Glucose Level 107 mg/dL (74-106); Magnesium 2.4 mg/dL (1.6-2.4); NT PRO-BNP 544 pg/mL (<450); Potassium 4.3 mEq/L (3.5-5.1); Protein, Total 6.7 g/dL (6.4-8.2); Sodium Level 137 mEq/L (136-145); Transferrin 297 mg/dL (200-360); Troponin High Sensitivity 13.6 pg/mL (<58.9)
[2024-09-26 18:08] LABS: Bilirubin Direct < 0.2 mg/dL (0-0.2); Bilirubin Indirect, Calculated 0.1 mg/dL (0.2-0.8)
[2024-09-26 18:22] LABS: Influenza A Ag Negative; Influenza B Ag Negative; SARS-CoV-2 Antigen Rapid Res Negative (Negative)
--- NOTE | 2024-09-26 18:36 | RAD REPORT ---
EXAMINATION: ONE VIEW CHEST XR CLINICAL INDICATION: Male, 78 years old.,Cough;SOB TECHNIQUE: Frontal chest projection is submitted. Examination is limited by patient positioning and t echnique. COMPARISON: 07/20/2023. FINDINGS: The lungs are well inflated and clear. No pneumothorax or sizable effusion. The heart is normal in s ize. Mediastinal contours are unremarkable. IMPRESSION: No acute intrathoracic abnormalities.
--- NOTE | 2024-09-26 19:05 | ER ---
Nurse's Notes [facility] Name: Kwadwo Bird Age: 78 yrs Sex: Male : 1945 Arrival Date: 09/26/2024 Time: 17:04 Bed 4 Private MD: Diagnosis: Dyspnea;Anemia in other chronic diseases classified elsewhere;Chronic kidney disease, unspecified Presentation: 09/26 17:15 Chief complaint: Patient states: Shortness of breath onset today and cough onset a few cm10 weeks ago. pt states that his O2 sat has been in the 80s. Coronavirus screen: Client denies travel out of the [place] in the last 14 days. Ebola Screen: Patient denies travel to an Ebola-affected area in the 21 days before illness onset. Initial Sepsis Screen: Does the patient meet any 2 criteria? RR > 20 per min. Does the patient have a suspected source of infection? No. Patient's initial sepsis screen is negative. Risk Assessment: Do you want to hurt yourself or someone else? Patient reports no desire to harm self or others. Onset of symptoms was September 26, 2024. 17:15 Method Of Arrival: Wheelchair cm10 17:15 Acuity: DEQUAN 2 cm10 Triage Assessment: 17:18 General: Appears uncomfortable, Behavior is cooperative. Neuro: No deficits noted. cm10 Level of Consciousness is awake, alert, obeys commands, Oriented to person, place, time, situation, Appropriate for age. Respiratory: Reports shortness of breath cough that is Airway is patent Respiratory effort is labored, Respiratory pattern is tachypnea. Historical: - Allergies: 17:17 Lyrica; cm10 17:17 Morphine; cm10 - PMHx: 17:17 Asthma; Chronic obstructive lung disease; Kidney disease; Atrial fibrillation; Anemia; cm10 - PSHx: 17:17 hernia repair; watchman procedure; cm10 - Immunization history:: Adult Immunizations up to date. - Infectious Disease History:: Denies. - Social history:: Smoking status: unknown. Screenin:38 [facility] ED Fall Risk Assessment (Adult) History of falling in the last 3 months, bp including since admission No falls in past 3 months (0 pts) Confusion or Disorientation No (0 pts) Intoxicated or Sedated No (0 pts) Impaired Gait No (0 pts) Mobility Assist Device Used No (0 pt) Altered Elimination No (0 pt) Score/Fall Risk Level 0 - 2 = Low Risk Oriented to surroundings. Abuse screen: Denies threats or abuse. Denies injuries from another. Nutritional screening: No deficits noted. Tuberculosis screening: No symptoms or risk factors identified. Assessment: 17:47 General: Appears in no apparent distress. Behavior is calm, cooperative, appropriate bp for age. Pain: Denies pain. Cardiovascular: Rhythm is sinus rhythm. Respiratory: Airway is patent Respiratory effort is labored, Breath sounds with wheezes bilaterally. 18:37 Reassessment: SPO2 88% WITHIN 3 STEPS OFF O2. bp 20:19 General: daughter Sophia [phone]. lg3 Vital Signs: 17:15 BP 170 / 76; Pulse 87; Resp 28; Temp 98.6; Pulse Ox 98% on R/A; cm10 18:39 BP 145 / 64; Pulse 90; Resp 19; Pulse Ox 94% on R/A; bp 19:28 BP 138 / 62; Pulse 87; Resp 16; Pulse Ox 95% on R/A; dd2 21:16 BP 124 / 56; Pulse 81; Resp 23; Pulse Ox 97% on R/A; Pain 0/10; dd2 21:16 Pain Scale: Adult dd2 ED Course: 17:05 Patient arrived in ED. am2 17:17 Triage completed. cm10 17:18 Arm band placed on right wrist. Patient placed in an exam room, on a stretcher, on cm10 equipment monitor phototypesetting, on pulse oximetry. EKG completed in triage. Results shown to MD. 17:18 EKG done, by ED staff. cm10 17:19 Iker Knutson PA is PHCP. cp 17:19 Antwan Reed MD is Attending Physician. cp 17:24 Client placed on continuous cardiac and pulse oximetry monitoring. NIBP monitoring hb applied. monitoring engineer on. Pulse ox on. NIBP on. 17:24 Initial lab(s) drawn, by me. Inserted saline lock: 20 gauge in right forearm, using hb aseptic technique. Blood collected. Flushed with 10 mL NS. 17:46 Nino Orona, RN is Primary Nurse. bp 18:24 XRAY Chest (1 view) In Process Unspecified. EDMS 19:03 Soham Harvey MD is Hospitalizing Provider. cp 19:39 Type And Screen Sent. vk 19:39 T\T\S collected, blood band applied to patient. vk 21:13 Patient has correct armband on for positive identification. Bed in low position. Call dd2 light in reach. Side rails up X2. Provided Education on: admission information. Door closed. Noise minimized. Warm blanket given. Pillow given. Verbal reassurance given. 21:13 No provider procedures requiring assistance completed. Patient admitted, IV remains in dd2 place. Administered Medications: 17:47 Drug: DuoNeb Nebulize (2.5 mg - 0.5 mg) 3 ml Nebulizer once Route: Nebulizer; bp 17:47 Drug: MethylPrednisoLONE IVP 125 mg IVP once Route: IVP; Site: right antecubital; bp Medication: 21:13 VIS not applicable for this client. dd2 Outcome: 19:05 Decision to Hospitalize by Provider. cp 21:13 Admitted to ER Hold. Please see [facility] for further documentation. dd2 21:13 Condition: stable 21:13 Instructed on the need for admit, Demonstrated understanding of instructions, 22:05 Patient left the ED. dd2 Signatures: Dispatcher [employer] EDMS Iker Knutson PA PA cp Kimberly Munoz, RN RN Mandie Shirley am2 Nino Orona RN RN bp Shari Shah RN RN lg3 Jazmin Arroyo, RN RN cm10 Nga Weathers vk PROSPER DECKER RN RN dd2 Corrections: (The following items were deleted from the chart) 18:39 17:47 BP 145 / 64; Pulse 90bpm; Resp 19bpm; Pulse Ox 94% RA; bp bp
--- NOTE | 2024-09-26 19:05 | EDPHYS ---
Physician Documentation [facility] Name: Kwadwo Bird Age: 78 yrs Sex: Male : 1945 Arrival Date: 09/26/2024 Time: 17:04 Bed 4 Private MD: ED Physician Antwan Reed HPI: 09/26 17:30 This 78 yrs old Male presents to ER via Wheelchair with complaints of Shortness Of cp Breath. 17:30 The patient has shortness of breath with light activity. cp 17:30 Onset: The symptoms/episode began/occurred yesterday. Duration: The symptoms are cp continuous, and are steadily getting worse. 17:30 Associated signs and symptoms: Pertinent positives: non-productive cough, Pertinent cp negatives: chest pain, diaphoresis, dizziness, fever, hemoptysis, vomiting. 17:30 Severity of symptoms: in the emergency department the symptoms are unchanged despite cp home interventions. Historical: - Allergies: 17:17 Lyrica; cm10 17:17 Morphine; cm10 - PMHx: 17:17 Asthma; Chronic obstructive lung disease; Kidney disease; Atrial fibrillation; Anemia; cm10 - PSHx: 17:17 hernia repair; watchman procedure; cm10 - Immunization history:: Adult Immunizations up to date. - Infectious Disease History:: Denies. - Social history:: Smoking status: unknown. ROS: 17:35 Constitutional: Negative for body aches, chills, fever, poor PO intake, cp 17:35 Cardiovascular: Negative for chest pain, edema, palpitations, cp 17:35 Respiratory: Positive for cough, with no reported sputum, shortness of breath, on exertion. Negative for wheezing, 17:35 Eyes: Negative for injury, pain, redness, and discharge, cp 17:35 ENT: Negative for drainage from ear(s), ear pain, sore throat, difficulty swallowing, cp difficulty handling secretions, 17:35 Abdomen/GI: Negative for abdominal pain, vomiting, diarrhea, constipation, 17:35 Back: Negative for pain at rest, pain with movement, 17:35 Neuro: Negative for altered mental status, dizziness, headache, numbness, syncope, near syncope, weakness, 17:35 All other systems are negative, Exam: 17:35 ECG was reviewed by the Attending Physician. cp 17:40 Constitutional: The patient appears in no acute distress, alert, awake, cp non-diaphoretic, non-toxic, well developed, well nourished, uncomfortable, 17:40 Head/Face: Normocephalic, atraumatic. cp 17:40 Eyes: Periorbital structures: appear normal, Conjunctiva: normal, no exudate, no cp injection, Sclera: no appreciated abnormality, Lids and lashes: appear normal, bilaterally, 17:40 ENT: External ear(s): are unremarkable, Nose: is normal, Mouth: Lips: moist, Oral cp mucosa: moist, Posterior pharynx: Airway: no evidence of obstruction, patent, 17:40 Neck: ROM/movement: is normal, is supple, without pain, no range of motions limitations, 17:40 Chest/axilla: Inspection: normal, 17:40 Cardiovascular: Rate: normal, Rhythm: regular, Edema: ankle edema, that is very mild, JVD: is not appreciated, 17:40 Respiratory: the patient does not display signs of respiratory distress, Respirations: labored breathing, that is mild, intercostal retractions, are absent, Breath sounds: decreased breath sounds, that are mild, throughout, stridor, is not appreciated, wheezing: is not appreciated, 17:40 Abdomen/GI: Inspection: abdomen appears normal, Palpation: abdomen is soft and non-tender, in all quadrants, 17:40 Back: pain, is absent, ROM is normal, 17:40 Neuro: Orientation: to person, place \T\ time. Mentation: is normal, Motor: moves all fours, strength is normal, Sensation: no obvious gross deficits, Vital Signs: 17:15 BP 170 / 76; Pulse 87; Resp 28; Temp 98.6; Pulse Ox 98% on R/A; cm10 18:39 BP 145 / 64; Pulse 90; Resp 19; Pulse Ox 94% on R/A; bp 19:28 BP 138 / 62; Pulse 87; Resp 16; Pulse Ox 95% on R/A; dd2 21:16 BP 124 / 56; Pulse 81; Resp 23; Pulse Ox 97% on R/A; Pain 0/10; dd2 21:16 Pain Scale: Adult dd2 MDM: 17:19 Medical Screening Exam initiated cp 17:45 Differential diagnosis: Anemia asthma, Bronchitis CHF exacerbation, Chronic Obstructive cp Pulmonary Disease Myocardial Infarction pneumonia, Pneumothorax pulmonary edema, Pulmonary Embolism reactive airway disease, Unstable Angina. 19:05 Data reviewed: vital signs, nurses notes, lab test result(s), EKG, radiologic studies, cp plain films, and as a result, I will admit patient. 19:05 Consideration of Admission/Observation Patient was admitted/placed on observation. cp Management of patient was discussed with the following: Hospitalist: DR Harvey will admit after discussion. I considered the following discharge prescriptions or medication management in the emergency department Medications were administered in the Emergency Department. See MAR. Test considered but Not performed: CT: chest. Care significantly affected by the following chronic conditions: Chronic Obstructive Pulmonary Disease, Chronic Kidney Disease, anemia. Counseling: I had a detailed discussion with the patient and/or guardian regarding the historical points, exam findings, and any diagnostic results supporting the discharge/admit diagnosis, lab results, radiology results, the need for further work-up and treatment in the hospital. Response to treatment: the patient's symptoms have mildly improved after treatment. 09/26 17: Order name: Basic Metabolic Panel; Complete Time: 18: cp 09/26 18:18 Interpretation: Normal except: CL 108; GLUC 107; BUN 30; CRE 2.32; GFR 28. cp 09/26 17:26 Order name: CBC with Diff; Complete Time: 18: cp 09/26 18:18 Interpretation: Normal except: RBC 3.12; HGB 7.3; HCT 24.1; MCV 77.4; MCH 23.3; MCHC cp 30.1; PLT 418; RDW 18.8; MPV 7.1; MICAELA% 74.7; LYM% 8.4; MN% 13.0; LYMA 0.6. 09/26 17:26 Order name: LFT's; Complete Time: 18:17 cp 16 18:21 Interpretation: Normal except: IBILI, CALC 0.1; A/G 1.0. cp 09/26 17: Order name: Magnesium; Complete Time: 18:17 cp 09/26 17:26 Order name: NT PRO-BNP; Complete Time: 18:17 cp 09/26 18:21 Interpretation: Abnormal: NT PRO-BNP 544. cp 09/26 17:26 Order name: PT-INR; Complete Time: 18: cp 09/26 17:26 Order name: Troponin HS; Complete Time: 18:17 cp 09/26 18:22 Interpretation: Reviewed. cp 09/26 17:26 Order name: COVID-19 Ag + Flu A+B Ag; Complete Time: 18:28 cp 09/26 18:28 Interpretation: Reviewed. cp 09/26 17:26 Order name: TIBC; Complete Time: 18:17 cp 09/26 18:22 Interpretation: Normal except: IRON 25.0; %SAT 6.0. cp 09/26 17:26 Order name: Iron Level; Complete Time: 18:17 cp 09/26 19:21 Order name: Type And Screen cp 09/26 20:23 Interpretation: Reviewed. cp 09/26 20:08 Order name: ABO/RH no charge; Complete Time: 20:23 EDMS 09/26 20:24 Interpretation: Reviewed. cp 09/26 20:30 Order name: Urinalysis w/ reflexes EDMS 09/26 20:30 Order name: CBC with Automated Diff EDMS 09/26 20:31 Order name: CBC with Automated Diff EDMS 09/26 20:31 Order name: Comprehensive Metabolic Panel EDMS 09/26 20:31 Order name: Comprehensive Metabolic Panel EDMS 09/26 17:26 Order name: XRAY Chest (1 view); Complete Time: 19:00 cp 09/26 19:00 Interpretation: Report review. cp 09/26 17:26 Order name: EKG; Complete Time: 17:27 cp 09/26 17:26 Order name: Cardiac monitoring; Complete Time: 17:39 cp 09/26 17:26 Order name: EKG - Nurse/Tech; Complete Time: 17:28 cp 09/26 17:26 Order name: IV Saline Lock; Complete Time: 17:28 cp 09/26 17:26 Order name: Labs collected and sent; Complete Time: 17:39 cp 09/26 17:26 Order name: O2 Per Protocol; Complete Time: 17:28 cp 09/26 17:26 Order name: O2 Sat Monitoring; Complete Time: 17:28 cp 09/26 18:29 Order name: Misc. Order: ambulate with pulse ox; Complete Time: 18:37 cp EC:35 Rate is 82 beats/min. Rhythm is regular. MD interval is normal. QRS interval is cp prolonged at 154 msec. QT interval is normal. T waves are Inverted in lead aVL. Interpreted by me. Reviewed by me. Administered Medications: 17:47 Drug: DuoNeb Nebulize (2.5 mg - 0.5 mg) 3 ml Nebulizer once Route: Nebulizer; bp 17:47 Drug: MethylPrednisoLONE IVP 125 mg IVP once Route: IVP; Site: right antecubital; bp Disposition Summary: 09/26/24 19:05 Hospitalization Ordered Notes: Hospitalization Status: Inpatient Admission cp Provider: Soham Harvey cp Location: Telemetry/MedSurg (Inpatient) cp Condition: Stable cp Problem: an acute exacerbation cp Symptoms: have improved cp Bed/Room Type: Standard cp Room Assignment: 212(09/26/24 20:47) rv1 Diagnosis - Dyspnea cp - Anemia in other chronic diseases classified elsewhere cp - Chronic kidney disease, unspecified cp Forms: - Medication Reconciliation Form cp - SBAR form cp - Leadership Thank You Letter cp Signatures: Dispatcher [employer] EDMS Iker Knutson PA PA cp Nino Orona RN RN Melva Gutierrez rv1 Jazmin Arroyo RN RN cm10 Corrections: (The following items were deleted from the chart) 17:38 17:38 Respiratory Syncytial Virus Ag+I.LAB.BRZ ordered. EDMS EDMS 18:09 18:08 Onset: The symptoms/episode began/occurred yesterday, cp cp 18:09 18:08 Duration: The symptoms are continuous, and are steadily getting worse, cp cp 18:09 18:08 Associated signs and symptoms: Pertinent positives: non-productive cough, cp cp 20:47 19:05 cp rv1 09/27 21:15 09/26 17:30 Associated signs and symptoms: Pertinent positives: non-productive cough, cpcp
--- NOTE | 2024-09-26 20:20 | P.HP ---
Certification for Inpatient Patient admitted to: Inpatient With expected LOS: >2 Midnights Practitioner: I am a practitioner with admitting privileges, knowledge of patient current condition, hospital course, and medical plan of care. Services: Services provided to patient in accordance with Admission requirements found in Title 42 Section 412.3 of the Code of Federal Regulations Patient History Date of Service: 09/27/24 Reason for admission: Shortness of breath History of Present Illness: 78 yrs old Male with past medical history of asthma, COPD, CKD, atrial fibrillation, status post watchman's procedure,anemia who was brought to ER with shortness of breath. Started yesterday as insidious in onset and has been getting tired and short of breath even with minimal activities. Denies any chest pain. No fever or chills. Associated with productive cough with mucoid expectoration. Denies any hemoptysis Denies any sick contacts. Patient was assessed in the ER and is admitted for further management of CHF/COPD exacerbation Allergies No Known Allergies Allergy (Unverified 08/29/11 11:09) Home medications list reviewed: Yes Home Medications: Furosemide 20 mg PO DAILY 06/28/23 Albuterol Inhaler [Ventolin Inhaler] 2 puff IH Q6H PRN 09/26/24 Amiodarone HCl 100 mg PO BID 09/26/24 Amlodipine [Norvasc] 5 mg PO DAILY 09/26/24 Cetirizine HCl [Zyrtec] 10 mg PO DAILY 09/26/24 Epoetin Aakash-Epbx [Retacrit] 10,000 unit IJ Q7D 09/26/24 Fluticasone [Flonase 50mcg Nasal Rowe] 2 sprays NS DAILY PRN 09/26/24 Fluticasone/Vilanterol [Breo Ellipta 200-25 Mcg INH] 2 puff IH DAILY 09/26/24 Tiotropium Cornelius [Spiriva] 1 spray IH DAILY 09/26/24 - Past Medical/Surgical History Diabetic: Yes Past Medical History: Reviewed- Non-Contributory -: CHFunknown EF -: COPD -: CKDunknown baseline -: History of A-fib status post Watchman -: Hypertension -: Asthma Past Surgical History: Patient denies surgical history -: Hernia repair -: Watchman procedure Psychosocial/ Personal History: Lives at home with family - Social History Smoking Status: Former smoker Alcohol use: Yes CD- Drugs: No Caffeine use: Yes Review of Systems 10-point ROS is otherwise unremarkable Physical Examination - Vital Signs Temperature: 98.6 F Blood Pressure: 170/76 Pulse: 86 Respirations: 18 Pulse Ox (%): 94 - Physical Exam General: Alert, Oriented x3, Mild distress HEENT: Atraumatic, Normocephalic Neck: Supple Respiratory: Normal air movement, Crackles/rales Cardiovascular: Regular rate/rhythm, Normal S1 S2 Capillary refill: <2 Seconds Gastrointestinal: Soft and benign, W/out hepatosplenomegaly Musculoskeletal: No clubbing Integumentary: No rashes Neurological: Normal speech, Normal strength at 5/5 x4 extr, Cranial nerves 3-12 intact, Normal reflexes 2+ Lymphatics: No axilla or inguinal lymphadenopathy - Studies Laboratory Data (last 24 hrs) 09/26/24 09/26/24 09/26/24 17:33 17:33 17:33 WBC 7.00 Hgb 7.3 L Hct 24.1 L Plt Count 418 H PT 11.8 INR 1.04 Sodium 137 Potassium 4.3 BUN 30 H Creatinine 2.32 H Glucose 107 H Magnesium 2.4 Total Bilirubin 0.3 AST 18 ALT 21 Alkaline Phosphatase 73 Assessment and Plan - Plan Acute on chronic CHF possibly systolic/diastolic Monitor closely on telemetry Started on aggressive diuresis X-ray findings noted Oxygen supplementation Will try to wean down oxygen requirement Continue home medications Titrate as needed Will obtain an echocardiogram Cardiology consult COPD Bronchodilators as needed Monitor closely on telemetry Oxygen supplementation Hypertension Antihypertensives titrated Continue home medications and titrate as needed Hyperlipidemia Continue statin KEMAL on CKD stage II Monitor renal parameters Electrolytes monitor and replace accordingly Anemia of chronic disease Monitor H&H closely No overt bleeding at this time GI/DVT prophylaxis Advanced directive full code Discharge Plan: Home Plan to discharge in: 48 Hours - Advance Directives Does patient have a Living Will: No Does patient have a Durable POA for Healthcare: No - Code Status/Comfort Care Code Status: Full Code Time Spent Managing Pts Care (In Minutes): 54
[2024-09-26] MEDS ORDERED: ACETAMINOPHEN 325 MG TABLET PO PRN (20:25)
[2024-09-26] MEDS ORDERED: ONDANSETRON 4 MG/2 ML VIAL IV PRN (20:25)
[2024-09-26 20:57] VITALS: BMI 26.2
[2024-09-26] MEDS: FUROSEMIDE 20 MG/ 2ML VIAL IV SCH (22:51)
[2024-09-27] MEDS ORDERED: ALBUTEROL INHALER 200 PUFF/6.7 GM IH PRN (00:08)
[2024-09-27 00:30] LABS: Specific Gravity 1.012 (1.005-1.030); Urine Bilirubin NEGATIVE (Negative); Urine Blood Negative (Negative); Urine Clarity Clear (Clear); Urine Color Colorless (Yellow); Urine Glucose NEGATIVE (Negative); Urine Ketones NEGATIVE (Negative); Urine Microscopic Reflex YN NO UMIC; Urine Nitrite NEGATIVE (Negative); Urine Protein NEGATIVE (Negative); Urine Urobilinogen Normal (Normal)
--- NOTE | 2024-09-27 01:07 | P.PN ---
Subjective Date of Service: 09/27/24 Subjective: No new changes, No C/O voiced, Improving Review of Systems 10-point ROS is otherwise unremarkable Physical Examination - Vital Signs Temperature: 97.8 F Blood Pressure: 135/63 Pulse: 78 Respirations: 18 Pulse Ox (%): 97 - Physical Exam General: Alert, In no apparent distress, Oriented x3 HEENT: Atraumatic, PERRLA, EOMI Neck: Supple, JVD not distended Respiratory: Clear to auscultation bilaterally, Normal air movement Cardiovascular: Regular rate/rhythm, Normal S1 S2 Gastrointestinal: Normal bowel sounds, No tenderness Musculoskeletal: No tenderness Integumentary: No rashes Neurological: Normal speech, Normal tone, Normal affect Lymphatics: No axilla or inguinal lymphadenopathy - Studies Laboratory Data (last 24 hrs) 09/26/24 09/26/24 09/26/24 17:33 17:33 17:33 WBC 7.00 Hgb 7.3 L Hct 24.1 L Plt Count 418 H PT 11.8 INR 1.04 Sodium 137 Potassium 4.3 BUN 30 H Creatinine 2.32 H Glucose 107 H Magnesium 2.4 Total Bilirubin 0.3 AST 18 ALT 21 Alkaline Phosphatase 73 Medications List Reviewed: Yes Assessment & Plan - Problems (Diagnosis) (1) COPD with acute exacerbation Status: Acute (2) Atrial fibrillation with rapid ventricular response Status: Acute (3) Elevated troponin Status: Acute (4) Hypertensive heart disease with congestive heart failure and stage 3 kidney disease Status: Acute - Plan Plan: 1. Acute COPD exacerbation; continue with nebs, steroids, and antibiotics 2. Atrial fibrillation; continue with medication for rate control and anticoagulation 3. CHF; continue with diuretics and continue with cardiac meds 4. GI DVT prophylaxis Discharge Plan: Home Plan to discharge in: Greater than 2 days - Advance Directives Does patient have a Living Will: No Does patient have a Durable POA for Healthcare: No - Code Status/Comfort Care Code Status: Full Code Critical Care: No Time Spent Managing PTS Care (In Minutes): 35
[2024-09-27 04:33] LABS: Absolute Lymphocytes (CBC) 0.2 K/uL (0.7-4.9); Absolute Monocytes 0.1 K/uL (0.1-1.3); Absolute Neutrophil 3.9 K/uL (1.8-8.0); Basophils % 0.1 % (0-1.3); Eosinophils % 0.3 % (0-4.4); Hematocrit 22.4 % (39.6-49.0); Hemoglobin 6.9 g/dL (13.6-17.9); Lymphocytes % 4.1 % (15.3-44.8); MCH 24.2 pg (27.0-35.0); MCV 78.3 fL (80-100); MPV 7.1 fL (7.6-11.3); Monocytes % 2.1 % (3.3-12.3); Neutrophils % 93.4 % (41.7-73.7); Nucleated Red Blood Cells % 0.1 % (0-0); Platelets 356 thou/uL (152-406); RBC Red Blood Cell Count 2.86 M/uL (4.33-5.43); Red Cell Distribution Width 18.7 % (12.1-15.2)
[2024-09-27 04:52] LABS: Albumin 3.4 g/dL (3.4-5.0); Albumin/Globulin Ratio 1.1 (1.1-1.8); Anion Gap 9.5 mEq/L (5.0-15.0); Bilirubin Total 0.3 mg/dL (0.2-1.0); Globulin 3.1 g/dL (2.3-3.5); Potassium 4.5 mEq/L (3.5-5.1); Protein, Total 6.5 g/dL (6.4-8.2)
[2024-09-27 05:35] LABS: Band Neutrophils 4 % (0-1); Differential Total Cells Count 100; Lymphocytes 3 % (15-42); Reactive Lymphocytes 2 %; Segmented Neutrophils 91 % (40-80)
[2024-09-27 05:36] LABS: Monocytes 0 % (0-10)
[2024-09-27 05:37] LABS: Anisocytosis 1+; Blood Morphology Comment NOTED (NOT SEEN); Platelet Estimate ADEQ; Polychromasia 2+
[2024-09-27] MEDS ORDERED: NA CHLORIDE 0.9% 250 ML IV SCH (06:00)
[2024-09-27] MEDS: TIOTROPIUM 5 SPRAYS/INHALER IH SCH (09:08)
[2024-09-27] MEDS: AMIODARONE HCL 200 MG TAB PO SCH (09:10)
[2024-09-27] MEDS: AMLODIPINE 5 MG TAB PO SCH (09:10)
[2024-09-27] MEDS: ALBUTEROL 2.5 MG/3 ML NEB SOL NEB PRN (13:23)
[2024-09-27] MEDS: IPRATROPIUM BROM 0.5MG/2.5ML NEB PRN (13:23)
[2024-09-27 14:38] LABS: Absolute Lymphocytes (CBC) 0.3 K/uL (0.7-4.9); Absolute Monocytes 1.1 K/uL (0.1-1.3); Absolute Neutrophil 5.9 K/uL (1.8-8.0); Basophils % 0.1 % (0-1.3); Hematocrit 25.8 % (39.6-49.0); Hemoglobin 8.2 g/dL (13.6-17.9); Lymphocytes % 3.7 % (15.3-44.8); MCH 25.1 pg (27.0-35.0); MCHC 31.6 g/dL (32.0-36.0); MCV 79.4 fL (80-100); MPV 7.4 fL (7.6-11.3); Monocytes % 15.4 % (3.3-12.3); Neutrophils % 80.8 % (41.7-73.7); Nucleated Red Blood Cells % 0.1 % (0-0); Percent Reticulocyte Count 4.29 % (0.4-2.05); Platelets 405 thou/uL (152-406); RBC Red Blood Cell Count 3.25 M/uL (4.33-5.43); Red Cell Distribution Width 20.1 % (12.1-15.2)
[2024-09-27 15:19] LABS: Albumin 3.6 g/dL (3.4-5.0); Albumin/Globulin Ratio 1.1 (1.1-1.8); Anion Gap 9.8 mEq/L (5.0-15.0); Bilirubin Total 0.4 mg/dL (0.2-1.0); Globulin 3.4 g/dL (2.3-3.5); Potassium 4.8 mEq/L (3.5-5.1)
[2024-09-27] MEDS: ALBUTEROL 2.5 MG/3 ML NEB SOL ONE (20:58)
[2024-09-27] MEDS: IPRATROPIUM BROM 0.5MG/2.5ML ONE (20:58)
[2024-09-27] MEDS: BENZONATATE 100 MG CAP PO PRN (21:08)
[2024-09-28 08:59] VITALS: O2SAT 97
--- NOTE | 2024-09-29 12:42 | EKG ---
Test Date: 2024-09-26 Test Time: 17:12:18 Jewelry Sorter: TRISH MEASUREMENT RESULTS: Intervals: Rate: 82 PA: 154 QRSD: 154 QT: 414 QTc: 483 Fowler: P: 84 PA: 154 QRS: 79 T: 53 INTERPRETIVE STATEMENTS: Sinus rhythm with fusion complexes Left bundle branch block Abnormal ECG Compared to ECG 07/21/2024 10:29:20 Fusion complex(es) now present Electronically Signed On 09-29-24 12:30:24 CDT by Raffi Cuello
[2024-10-06 00:49] VITALS: BP 135/63; TEMP 97.8
--- NOTE | 2024-10-06 00:50 | P.DS ---
Discharge Date: 09/28/24 Disposition: ROUTINE DISCHARGE Discharge Condition: GOOD Reason for Admission: Shortness of breath - Problems (1) COPD with acute exacerbation Status: Acute (2) Atrial fibrillation with rapid ventricular response Status: Acute (3) Elevated troponin Status: Acute (4) Hypertensive heart disease with congestive heart failure and stage 3 kidney disease Status: Acute Brief History of Present Illness: 78 yrs old Male with past medical history of asthma, COPD, CKD, atrial fibrillation, status post watchman's procedure,anemia who was brought to ER with shortness of breath. Started yesterday as insidious in onset and has been getting tired and short of breath even with minimal activities. Denies any chest pain. No fever or chills. Associated with productive cough with mucoid expectoration. Denies any hemoptysis Denies any sick contacts. Patient was assessed in the ER and is admitted for further management of CHF/COPD exacerbation Hospital Course: Patient has done well during hospital stay. Patient clinical symptoms have improved. Patient was given nebs, steroids, and antibiotics and patient is breathing much better. At this time, patient is doing well and patient is stable for discharge home. Vital Signs/Physical Exam: Temp Pulse Resp BP Pulse Ox 97.8 F 78 18 135/63 97 10/06/24 00:48 10/06/24 00:48 10/06/24 00:48 10/06/24 00:48 10/06/24 00:48 General: Alert, In no apparent distress, Oriented x3 Laboratory Data at Discharge: WBC 7.30 thou/uL (4.3-10.9) 09/27/24 14:05 Hgb 8.2 g/dL (13.6-17.9) L D 09/27/24 14:05 Hct 25.8 % (39.6-49.0) L 09/27/24 14:05 Plt Count 405 thou/uL (152-406) 09/27/24 14:05 PT 11.8 SECONDS (10-13.0) 09/26/24 17:33 INR 1.04 09/26/24 17:33 Sodium 135 mEq/L (136-145) L 09/27/24 14:05 Potassium 4.8 mEq/L (3.5-5.1) 09/27/24 14:05 BUN 38 mg/dL (7-18) H 09/27/24 14:05 Creatinine 2.28 mg/dL (0.70-1.30) H 09/27/24 14:05 Glucose 123 mg/dL (74-106) H 09/27/24 14:05 Magnesium 2.4 mg/dL (1.6-2.4) 09/26/24 17:33 Total Bilirubin 0.4 mg/dL (0.2-1.0) 09/27/24 14:05 AST 23 U/L (15-37) 09/27/24 14:05 ALT 24 U/L (16-61) 09/27/24 14:05 Alkaline Phosphatase 71 U/L (45-117) 09/27/24 14:05 Home Medications: Furosemide 20 mg PO DAILY 06/28/23 Albuterol Inhaler [Ventolin Inhaler*] 2 puff IH Q6H PRN 09/26/24 Amiodarone HCl 100 mg PO BID 09/26/24 Amlodipine [Norvasc*] 5 mg PO DAILY 09/26/24 Cetirizine HCl [Zyrtec] 10 mg PO DAILY 09/26/24 Epoetin Aakash-Epbx [Retacrit] 10,000 unit IJ Q7D 09/26/24 Fluticasone [Flonase 50MCG Nasal [place]*] 2 sprays NS DAILY PRN 09/26/24 Fluticasone/Vilanterol [Breo Ellipta 200-25 Mcg Inhalr] 2 puff IH DAILY 09/26/24 Tiotropium Hood [Spiriva] 1 spray IH DAILY 09/26/24 Albuterol Neb [Proventil 0.083% Neb Soln] 2.5 mg NEB Q6HP PRN #60 amp 09/28/24 Benzonatate [Tessalon Perle*] 100 mg PO TID PRN #30 cap 09/28/24 New Medications: Albuterol Neb [Proventil 0.083% Neb Soln] 2.5 mg NEB Q6HP PRN #60 amp PRN Reason: Shortness Of Breath Benzonatate [Tessalon Perle*] 100 mg PO TID PRN #30 cap PRN Reason: Cough Physician Discharge Instructions: -DC IV and DC home -Follow-up with PCP in 1 to 2 weeks -Follow-up with Pulmonary in 1 to 2 weeks -Please call Dr. Degroot at [phone] if any questions regarding hospital stay -Please call nursing station at [phone] if any nursing or medication questions -Return to the emergency room if symptoms worsen Diet: AHA Activity: Fall precautions Followup: Jack Weems MD [ACTIVE - CAN ADMIT] - 1-2 Weeks NONE,NONE [Primary Care Provider] - Time spent managing pt's care (in minutes): 35
== END 2024-09-28 14:39 | disposition home or self-care (01) | DRG 189 ==
LOC: ER 17:04 → ERHOLD 20:25 → 2ND 21:14
PROVIDERS: ADMIT Family Medicine; ATTEND Hospitalist
DX: J96.01 Acute respiratory failure with hypoxia (principal); J44.1 Chronic obstructive pulmonary disease with (acute) exacerbation; I13.0 Hypertensive heart and chronic kidney disease with heart failure and stage 1 through stage 4 chronic kidney disease, or unspecified chronic kidney disease; N17.9 Acute kidney failure, unspecified; Z99.81 Dependence on supplemental oxygen; D64.9 Anemia, unspecified; N18.2 Chronic kidney disease, stage 2 (mild); I50.82 Biventricular heart failure; I48.91 Unspecified atrial fibrillation; Z79.01 Long term (current) use of anticoagulants; E78.5 Hyperlipidemia, unspecified
CPT/HCPCS: 36415; 71045; 80048; 80053; 80076; 81003; 82607; 82728; 83540; 83735; 83880; 84466; 84484; 85025; 85044; 85610; 86850; 86900; 86901; 86920; 87428; 93005; 94640; 94760; 96374; 99285; J1940; J2919; J7050; J7613; J7644; P9016